=== PATIENT | female | born 1950 | race Caucasian/White ===

== ENCOUNTER → 2016-08-27 | Outpatient (CLI) | payer MEDICARE, OTHER ==
[~2016-08-27] MED LIST: ASPI-483 PO; CITA-49 PO; EXEN2VIA SQ; LOSA50TA17 PO; PANT40TA25 PO
== END ==
LOC: IMA 13:50
PROVIDERS: ATTEND Physician Assistant
DX: N64.4 Mastodynia (principal); N64.59 Other signs and symptoms in breast; N64.89 Other specified disorders of breast; M85.89 Other specified disorders of bone density and structure, multiple sites; M48.56XA Collapsed vertebra, not elsewhere classified, lumbar region, initial encounter for fracture; N95.8 Other specified menopausal and perimenopausal disorders; E28.39 Other primary ovarian failure; Z82.62 Family history of osteoporosis; Z87.828 Personal history of other (healed) physical injury and trauma
CPT/HCPCS: 77080; G0204; G0279

== ENCOUNTER 2016-12-31 11:02 | Inpatient (IN) ==
[2016-12-31] MEDS ORDERED: SALINE FLUSH 10ml SYRINGE IVF PRN (11:28)
[2016-12-31] MEDS ORDERED: FentaNYL 100 MCG/2 ML INJECTION IVP ONE ×2 (11:29→13:13)
--- NOTE | 2016-12-31 12:17 | Emergency Department Report ---
General Adult HPI - General Chief complaint: Extremity Injury, Lower Stated complaint: fall in shower Time Seen by Provider: 12/31/16 11:25 Source: patient Mode of arrival: ambulatory Limitations: no limitations - History of Present Illness HPI narrative: 66-year-old female presents to the emergency department with a chief complaint of a left lower extremity injury following a fall in the shower. Fall was mechanical. Patient slipped while coming out of the shower. She denies striking her head, neck pain, or loss of consciousness. Patient denies any other injuries. Patient notes pain in the left ankle. No radiation. Pain is severe. Pain is sharp. Pain improved with rest and positioning. No other complaints or associated symptoms. Patient was at home when the incident occurred. Symptoms have been persistent in nature since onset. - Related Data Home Medications Medication Instructions Recorded Confirmed Citalopram Hydrobromide 20 mg PO HS #0 04/24/10 12/31/16 [Citalopram HBr] Pantoprazole Sodium [Protonix] 40 mg PO DAILY #0 04/24/10 12/31/16 Acetaminophen [Acetaminophen Extra 1,000 mg PO Q6H PRN 12/31/16 12/31/16 Strength] Aspirin 325 mg PO HS 12/31/16 12/31/16 Canagliflozin [Invokana] 300 mg PO DAILY 12/31/16 12/31/16 Losartan Potassium 25 mg PO DAILY 12/31/16 12/31/16 Meloxicam [Meloxicam] 7.5 mg PO HS 12/31/16 12/31/16 Oxybutynin Chloride 5 mg PO BID 12/31/16 12/31/16 Pravastatin [Pravachol] 20 mg PO HS 12/31/16 12/31/16 Allergies Allergy/AdvReac Type Severity Reaction Status Date / Time cefazolin Allergy Mild Rash Verified 12/31/16 11:26 Review of Systems Constitutional: Denies: fever, chills Eyes: Denies: eye pain, vision change ENT: Denies: ear pain, throat pain Cardiovascular: Denies: chest pain, palpitations Respiratory: Denies: cough, dyspnea Gastrointestinal: Denies: abdominal pain, nausea, vomiting, diarrhea Genitourinary: Denies: urgency, dysuria Musculoskeletal: Reports: arthralgia. Denies: back pain Integumentary: Denies: erythema, rash Neurological: Denies: headache, numbness, paresthesias Psychiatric: Denies: anxiety, depression Endocrine: Denies: fatigue, heat or cold intolerance Hematological/Lymphatic: Denies: easy bleeding, easy bruising Allergic/Immunologic: Denies: facial swelling, urticaria PFSH Patient Stated Medical History Hypertension Yes Other Cardiology Yes: stress test 2 yrs ago and found no problems Sleep Apnea No Diabetes Mellitus Type 2 Yes: does not check bs at home, last A1c was 7.9 Gastroesophageal Reflux Yes Disease Osteoarthritis Yes Post Menopausal Yes Now No Surgical History: General: gallbladder, hernia, back, colonoscopy. Reproductive/: Family History: Reviewed and noncontributory. - Social History Smoking status: Never smoker Substance use type: does not use Alcohol intake frequency: does not drink Physical Exam - Limitations Limitations: no limitations - General General appearance: alert, in no apparent distress - Normal Exams: Head:: Normocephalic without trauma Eyes:: Pupils are PERRLA w/ EOMI, No scleral icterus, irritation, or foreign bodies noted ENMT:: No facial trauma, nasal exudates, pharyngeal erythema, or exudates are noted Dental: No fractured, loose, or missing teeth noted Neck:: Full range of motion, without adenopathy, JVD, bruits or thyromegaly Chest/Respirations:: Clear all cr, with good airflow, and symmetry bilaterally Cardiovascular:: Regular rate and rhythm, without murmur or gallop, Pulses 2+ all extremities, capillary refill, <2 seconds all extremities Abdomen:: Bowel sounds positive, soft, non-tender, non-distended, no hepatosplenomegaly, masses or bruits noted Lymphatic:: No lymphadenopathy, or lymphedema noted Musculoskeletal:: No tenderness, or deformity noted, good range of motion, all extremities (LLE - + edema with generalized tenderness around the ankle. No fibular head tenderness. Skin is intact. Pulses intact. Sensation intact. Capillary refill less than 2. No erythema. No other tenderness in the left lower extremity. All other extremities are unremarkable.) Integumentary:: No rashes, hives, or bruising noted, hair and nails, without abnormality Neurological:: Patient is alert, and oriented, cranial nerves, motor/sensory/ cerebellar, exams w/o gross deficits, to observation Psychiatric:: Patient exhibits, appropriate attention, emotion and affect Course Vital Signs Temperature 98.5 F 12/31/16 11:07 Pulse Rate 86 12/31/16 11:07 Respiratory Rate 18 12/31/16 11:07 Blood Pressure 149/73 H 12/31/16 11:07 Pulse Oximetry 98 12/31/16 11:07 Temperature 97.1 F 01/01/17 04:00 Pulse Rate 65 01/01/17 04:00 Respiratory Rate 14 01/01/17 04:00 Blood Pressure 109/61 01/01/17 04:00 Pulse Oximetry 95 01/01/17 04:00 Medical Decision Making - MDM Narrative Medical decision making narrative: Imaging was discussed in detail with the patient and questions are answered. Patient is given analgesic pain medication within the 1st hour of arrival to the emergency Department. Patient is discussed with Dr. Gore and admitted to his service for further evaluation and treatment. Splint was placed by Dr. Gore with good alignment in the emergency Department. Patient was distal neurovascular intact post-application of splint. Patient and family are in agreement with the current plan of management. Patient is admitted to the hospital in improved condition. No further orders. - Differential Diagnosis sprain, strain, fracture, dislocation - Lab Data Result diagrams: 01/01/17 04:32 01/01/17 04:32 Lab Results 12/31/16 12/31/16 12/31/16 Range/Units 14:51 17:41 21:34 WBC (4.5-11.0) T/MM3 RBC (4.00-5.20) M/MM3 Hgb (12-16) GM/DL Hct (36-46) % MCV (80-100) UM3 MCH (26-34) UUG MCHC (31-37) GM/DL RDW Std Deviation (36.9-50.2) FL Plt Count (130-400) T/MM3 MPV (9.4-12.4) UM3 Immature Gran % (Auto) (0.0-0.5) % Neut % (Auto) (33-66) % Lymph % (Auto) (23-45) % Sabine % (Auto) (0-9.0) % Eos % (Auto) (0-4) % Baso % (Auto) (0-2) % Neut # (1.8-7.7) T/MM3 Lymph # (1-4.8) T/MM3 Sabine # (0-0.8) T/MM3 Eos # (0-0.5) T/MM3 Baso # (0-0.2) T/MM3 Abs Immat Gran (auto) (0.00-0.03) T/MM3 Turbidity < 20 (0-20) Sodium 146 H (134-144) MEQ/L Potassium 4.0 (3.6-5) MEQ/L Chloride 111 H (98-107) MEQ/L Carbon Dioxide 23 (22-30) MEQ/L Anion Gap 12 (5-15) MEQ/L BUN 20.0 H (7-17) MG/DL Creatinine 0.5 L (0.7-1.2) MG/DL GFR Calculation 124 BUN/Creatinine Ratio 40 H (6-26) RATIO Glucose 158 H (65-110) MG/DL Glucometer 145 257 (65-110) mg/dL Calculated Osmolality 287 H (261-280) MOSM/KG Calcium 9.4 (8.4-10.2) MG/DL Icterus Index < 2 (0-7) Specimen Hemolysis < 15 (0-25) 01/01/17 01/01/17 Range/Units 04:32 04:32 WBC 10.7 (4.5-11.0) T/MM3 RBC 4.64 (4.00-5.20) M/MM3 Hgb 14.0 (12-16) GM/DL Hct 42.1 (36-46) % MCV 90.7 (80-100) UM3 MCH 30.2 (26-34) UUG MCHC 33.3 (31-37) GM/DL RDW Std Deviation 41.8 (36.9-50.2) FL Plt Count 240 (130-400) T/MM3 MPV 10.2 (9.4-12.4) UM3 Immature Gran % (Auto) 0.9 H (0.0-0.5) % Neut % (Auto) 79.7 H (33-66) % Lymph % (Auto) 10.7 L (23-45) % Sabine % (Auto) 8.3 (0-9.0) % Eos % (Auto) 0.2 (0-4) % Baso % (Auto) 0.2 (0-2) % Neut # 8.5 H (1.8-7.7) T/MM3 Lymph # 1.2 (1-4.8) T/MM3 Sabine # 0.9 H (0-0.8) T/MM3 Eos # 0.0 (0-0.5) T/MM3 Baso # 0.0 (0-0.2) T/MM3 Abs Immat Gran (auto) 0.10 H (0.00-0.03) T/MM3 Turbidity < 20 (0-20) Sodium 146 H (134-144) MEQ/L Potassium 4.8 D (3.6-5) MEQ/L Chloride 107 (98-107) MEQ/L Carbon Dioxide 27 (22-30) MEQ/L Anion Gap 12 (5-15) MEQ/L BUN 20.0 H (7-17) MG/DL Creatinine 0.6 L (0.7-1.2) MG/DL GFR Calculation 101 BUN/Creatinine Ratio 33 H (6-26) RATIO Glucose 155 H (65-110) MG/DL Glucometer (65-110) mg/dL Calculated Osmolality 287 H (261-280) MOSM/KG Calcium 9.7 (8.4-10.2) MG/DL Icterus Index < 2 (0-7) Specimen Hemolysis < 15 (0-25) - Radiology Data L Foot - Negative. L Ankle - closed distal tibia/fibula fracture. L TIB/FIB - closed distal tibia/fibula fracture. Disposition Clinical Impression: Ankle fracture Qualifiers: Encounter type: initial encounter Fracture type: closed Laterality: left Qualified Code(s): S82.892A - Other fracture of left lower leg, initial encounter for closed fracture Disposition: To [facility] Condition: Stable Time of Disposition: 13:00 - Seen By: physician
--- NOTE | 2016-12-31 12:46 | XRay Report ---
Indication: Pain / Injury PROCEDURE: XR foot LT min 3V: Encounter: Initial Comparison: Ankle radiographs from the same time. Findings: Oblique distal fibular and medial malleolar fractures, better seen on the ankle radiographs. No acute fracture or dislocation seen in the foot. Impression: Closed posttraumatic distal tibial and fibular fractures. .
--- NOTE | 2016-12-31 13:00 | XRay Report ---
Indication: Pain / Injury fall with ankle pain PROCEDURE: XR ankle LT min 3V: Encounter: Initial Comparison: None Findings: Oblique minimally displaced distal fibular fracture. Mildly displaced fracture of the medial malleolus. Widening of the medial clear space. The tibiofibular syndesmosis is not obviously widened. Lateral soft tissue swelling. No additional acute fracture or dislocation seen. Impression: Closed posttraumatic Arrington type B ankle fracture. .
--- NOTE | 2016-12-31 13:00 | XRay Report ---
Indication: Pain / Injury PROCEDURE: XR tib/fib LT 2V: Encounter: Initial Comparison: : Radiograph from the same time. Findings: Distal tibial and fibular fractures are better described and evaluated on the ankle radiographs. No acute fracture of the more proximal tibia or fibula seen. No dislocation. Impression: Closed posttraumatic distal tibial and fibular fractures. .
[2016-12-31] MEDS ORDERED: LR 1,000 ML IV SCH (14:45)
--- NOTE | 2016-12-31 14:48 | Orthopedic History & Physical ---
Orthopedic HPI - HPI Elements left ankle Pain: stabbing Onset: sudden Severity: moderate Duration: 1-6 hours How Often Does Pain Occur: constant Aggrevated by: walking Associated Symptoms: swelling Treatments Tried: immobilization Recommendation: ORIF - HPI Comments Fell out of her bathroom this morning and had immediate pain in the left ankle and was unable to bear weight. No previous problems with this ankle. [facility] Patient Stated Medical History Hypertension Yes Diabetes Mellitus Type 2 Yes Gastroesophageal Reflux Yes Disease Osteoarthritis Yes Post Menopausal Yes Now No Family History: noncontributory to chief complaint - Social History Smoking status: Never smoker Review of Systems - Constitutional Constitutional: Absent: chills - Cardiovascular Cardiovascular: Absent: chest pain, palpitations - Respiratory Respiratory: Absent: cough, dyspnea - Gastrointestinal Gastrointestinal: Absent: abdominal pain, nausea, vomiting - Genitourinary Genitourinary Female: Absent: dysuria - Musculoskeletal Musculoskeletal: Present: as per HPI - Integumentary/Breasts Integumentary: Absent: lesions, rash - Neurological Neurological: Absent: numbness, tingling Medications Home Medications Medication Instructions Recorded Confirmed Type Citalopram Hydrobromide 20 mg PO HS #0 04/24/10 12/31/16 History [Citalopram HBr] Pantoprazole Sodium [Protonix] 40 mg PO DAILY #0 04/24/10 12/31/16 History Acetaminophen [Acetaminophen Extra 1,000 mg PO Q6H PRN 12/31/16 12/31/16 History Strength] Aspirin 325 mg PO HS 12/31/16 12/31/16 History Canagliflozin [Invokana] 300 mg PO DAILY 12/31/16 12/31/16 History Losartan Potassium 25 mg PO DAILY 12/31/16 12/31/16 History Meloxicam [Meloxicam] 7.5 mg PO HS 12/31/16 12/31/16 History Oxybutynin Chloride 5 mg PO BID 12/31/16 12/31/16 History Pravastatin [Pravachol] 20 mg PO HS 12/31/16 12/31/16 History Allergies Allergy/AdvReac Type Severity Reaction Status Date / Time cefazolin Allergy Mild Rash Verified 12/31/16 11:26 Orthopedic Exam Vital signs: Temperature 98.5 F 12/31/16 11:07 Pulse Rate 86 12/31/16 11:07 Respiratory Rate 18 12/31/16 11:07 Blood Pressure 149/73 H 12/31/16 11:07 Pulse Oximetry 98 12/31/16 11:07 Oxygen Delivery Method Room Air - Constitutional General Appearance: Present: no acute distress, well developed, well nourished - Respiratory Exam Present: non-labored - Cardiovascular Exam Present: pedal pulses intact - Extremities Exam Comments: obvious deformity to left ankle, swelling present but good wrinkle sign less than 1mm superficial abrasion over anterior ankle good sensation and pulses - Integumentary Exam Present: pink, warm, dry - Neurological Exam Present: intact to light touch, no deficits - Psychiatric Exam Present: alert, normal affect Orthopedic Assessment and Plan (1) Bimalleolar fracture of left ankle Status: Acute Qualifiers: Encounter type: initial encounter Fracture type: closed Qualified Code(s) : S82.842A - Displaced bimalleolar fracture of left lower leg, initial encounter for closed fracture Assessment and Plan: Discussed the fracture with her and her . I recommended surgical fixation and I explained the risks and benefits of surgery and expected postoperative course. They agreed with this plan and we will proceed with surgery today. Hospital Course Summary Disclaimer: The visit summary below is not to be considered part of the above Progress Note.
[2016-12-31] MEDS ORDERED: CLINDAMYCIN PB 900 MG/50 ML BAG IV ONE (15:00)
[2016-12-31] MEDS ORDERED: LIDOCAINE 1% (10mg/ml) 30ml SDV INJ ONE (15:07)
[2016-12-31] MEDS ORDERED: BUPIVACAINE 0.25% (2.5mg/ml) PF 30ml INJECTION ONE (15:07)
--- NOTE | 2016-12-31 15:11 | Anesthesia Preoperative Report ---
Anesthesia Preoperative Record - Date and Time Date: 12/31/16 Preoperative Diagnosis: fall in shower fx left ankle Proposed Procedure: ORIF left ankle NPO Since Date: 12/30/16 NPO Since Time: 19:00 Allergies/Adverse Reactions: Allergies Allergy/AdvReac Type Severity Reaction Status Date / Time cefazolin Allergy Mild Rash Verified 12/31/16 11:26 - Vital Signs Vital Signs: Temperature 99.3 F 12/31/16 14:44 Pulse Rate 88 12/31/16 14:48 Respiratory Rate 21 12/31/16 14:44 Blood Pressure 126/56 12/31/16 14:44 Pulse Oximetry 94 12/31/16 14:44 Oxygen Delivery Method Room Air Height and Weight: Height 1.57 m Weight 96.2 kg - Medications Inpatient Medications: Current Medications Lactated Ringer's (Lactated Ringers) 1,000 mls @ 50 mls/hr IV .Q20H DENNIS Last Admin: 12/31/16 14:48 Dose: 50 mls/hr Clindamycin Phosphate (Cleocin Premix) 900 mg in 50 mls @ 100 mls/hr IV O ONE Stop: 12/31/16 15:29 Sodium Chloride (Iv Flush) 10 - 80 ml IVF PRN PRN PRN Reason: [place] Home Medications: Home Medications Medication Instructions Recorded Confirmed Type Citalopram Hydrobromide 20 mg PO HS #0 04/24/10 12/31/16 History [Citalopram HBr] Pantoprazole Sodium [Protonix] 40 mg PO DAILY #0 04/24/10 12/31/16 History Acetaminophen [Acetaminophen Extra 1,000 mg PO Q6H PRN 12/31/16 12/31/16 History Strength] Aspirin 325 mg PO HS 12/31/16 12/31/16 History Canagliflozin [Invokana] 300 mg PO DAILY 12/31/16 12/31/16 History Losartan Potassium 25 mg PO DAILY 12/31/16 12/31/16 History Meloxicam [Meloxicam] 7.5 mg PO HS 12/31/16 12/31/16 History Oxybutynin Chloride 5 mg PO BID 12/31/16 12/31/16 History Pravastatin [Pravachol] 20 mg PO HS 12/31/16 12/31/16 History - Medical History Cardiovascular: Reports: Hypertension, Other (stress test 2 yrs ago and found no problems ) Renal/Endocrine: Reports: Diabetes Mellitus Type 2 (does not check bs at home, last A1c was 7.9) - Surgical History HEENT Surgeries: Reports: Tonsillectomy GI Surgery/Treatments: Reports: Appendectomy, Cholecystectomy, Colonoscopy, Other (LOWER ABDOMINAL HERNIA) Musculoskeletal Surgery/Tx: Reports: Carpal Tunnel Release, Orthopedic Surgery ( BACK SURGERY X3) Reproductive Surgery/Treatment: Reports: Oophorectomy (removed rt ovary), Other ( x2. ectopic ) Anesthesia Reactions: None Hx Family Anesthesia Reaction: No - Social History Smoking Status: Never smoker - Pertinent Findings EKG Rhythm: Normal Sinus Rhythm - Physical Exam Respiratory Exam: Present: lungs clear, bilateral breath sounds equal Cardiovascular Exam: Present: regular rate and rhythm, no murmur - Airway Assessment Mallampati Score: III TMD: 2 Fingerbreadths Overall Assessment: may be difficult intubation - ASA ASA Score: 2 - Plan Anesthesia: General TIVA, General Inhalation Gases Peripheral Nerve Block: Popliteal-Left - Discussion Discussion: Discussed risks/options/alternatives of anesthesia and questions answered. Patient consents. Nursing pain assessment noted. Attestation Statement: Prior to the delivery of any anesthetic medication, I examined the patient, developed the plan, obtained the patient's consent and discussed the risk and benefits of the procedure with the patient/guardian.
[2016-12-31] MEDS ORDERED: MIDAZOLAM 2mg/2ml INJECTION IVP ONE (15:12)
[2016-12-31] MEDS ORDERED: ROPIVACAINE 0.5% (5mg/ml) 30ml INJ ONE (15:23)
[2016-12-31] MEDS: FentaNYL 250 MCG/5 ML INJECTION IVP ONE ×2 (15:30→17:47)
[2016-12-31] MEDS ORDERED: LIDOCAINE 2% (100mg/5mL) PF 5ml vl ONE (15:45)
[2016-12-31] MEDS ORDERED: PROPOFOL 500 MG/50 ML VIAL IV ONE (15:45)
[2016-12-31] MEDS ORDERED: MIDAZOLAM 2mg/2ml INJECTION ONE (15:45)
[2016-12-31] MEDS ORDERED: FentaNYL 100 MCG/2 ML INJECTION ONE (15:45)
[2016-12-31] MEDS ORDERED: KETAMINE 500 MG/10 ML INJECTION ONE (15:45)
[2016-12-31] MEDS ORDERED: DEXAMETHASONE 4 MG/ML INJECTION ONE (15:59)
[2016-12-31] MEDS ORDERED: ONDANSETRON 4 MG/2 ML INJECTION ONE (15:59)
--- NOTE | 2016-12-31 16:11 | Anesthesia Procedure Note ---
Peripheral Nerve Blockade - Procedure Physician: Sergio Gore MD Date: 12/31/16 Surgical Procedure: left ankle fx Discussion: Discussed risks/options/alternatives of anesthesia and questions answered. Patient consents. Nursing pain assessment noted. Block Start: 15:32 Block Stop: 15:39 Blocked Employed: Popliteal Indication: Post-Operative Pain Approach: Left Side Confirmed Position: Supine Patient: Consent, Risks/Benefits Discussed, Informed, Post Block Act. Discussed IV Sedation: Yes Midazolam (mg): 2 Fentanyl (mg): 100 Initial Vital Signs: Temperature 98.5 F 12/31/16 11:07 Temperature Source Oral 12/31/16 11:07 Sepsis Recent Fever Within 48 Hours No 12/31/16 11:07 Sepsis Suspicion of Infection No 12/31/16 11:07 Sepsis New/Unexplained Change in Mental Status No 12/31/16 11:07 Sepsis Score/Level No Definite Risk 12/31/16 11:07 Sepsis Action Taken by Nursing No Action 12/31/16 11:07 Pulse Rate 86 12/31/16 11:07 Pulse Rhythm 12/31/16 11:07 Pulse Strength Normal 12/31/16 11:07 Respiratory Rate 18 12/31/16 11:07 Respiratory Effort 12/31/16 11:07 Respiratory Depth Normal 12/31/16 11:07 Respiratory Pattern 12/31/16 11:07 Blood Pressure 149/73 H 12/31/16 11:07 Blood Pressure Mean 98 12/31/16 11:07 Blood Pressure Position Sitting 12/31/16 11:07 Pulse Oximetry 98 12/31/16 11:07 Oxygen Delivery Method 12/31/16 11:07 Post Vital Signs: Temperature 99.3 F 12/31/16 14:44 Pulse Rate 92 12/31/16 15:42 Respiratory Rate 19 12/31/16 15:42 Blood Pressure 126/76 12/31/16 15:42 Pulse Oximetry 94 12/31/16 15:42 Oxygen Delivery Method Room Air Initial Pain Pain Score: 5 Post Block Pain Score: 3 Prep: Chlorhexadine/ETOH Ultrasound Used?: Yes - Nerve Simulator Paresthesia/Pain: None - Injectate Injection: Injection made incrementally with constant monitoring and aspiration every ml
[2016-12-31] MEDS ORDERED: HYDROMORPHONE 2 MG/ML INJECTION IVP PRN (16:12)
[2016-12-31] MEDS ORDERED: METOCLOPRAMIDE 10mg/2ml INJECTION IVP PRN (16:12)
--- NOTE | 2016-12-31 16:59 | Anesthesia Postoperative Note ---
- Date and Time Date: 12/31/16 Time: 16:50 - Status Patient Participated in Evaluation: Patient Participated in Person Vital Signs: Temperature 99.3 F 12/31/16 14:44 Pulse Rate 92 12/31/16 15:42 Respiratory Rate 19 12/31/16 15:42 Blood Pressure 126/76 12/31/16 15:42 Pulse Oximetry 94 12/31/16 15:42 Oxygen Delivery Method Room Air Respiratory Function: Airway Patent Cardiovascular Function: Regular Pulse EKG Rhythm: Normal Sinus Rhythm Mental Status: Alert and Oriented Pain Intensity: 0 Hydration: IV Infusing Complications During Recover: None Apparent - Follow-Up Instructions Instructions: Per Surgeon
--- NOTE | 2016-12-31 17:01 | Remote Fluorsocopy Report ---
Indication: ORIF LEFT ANKLE PROCEDURE: RF ankle LT 3 view: Encounter: Initial Comparison: Ankle radiographs from earlier today Findings: Four fluoroscopic spot images are submitted for interpretation. Images show open reduction and internal fixation of the Arrington type B ankle fracture with placement of two partially threaded cannulated lag screws across the medial malleolus and a lateral side plate and screws across the distal fibular fracture with improved alignment of the fracture fragments. Impression: Intraoperative fluoroscopy as above. Fluoroscopy time is 47 seconds. Fluoroscopy dose is 187 mRad. .
[2016-12-31] MEDS ORDERED: ONDANSETRON 4 MG/2 ML INJECTION IVP PRN (17:25)
[2016-12-31] MEDS ORDERED: NOZIN NASAL SWAB NAS ONE (17:25)
[2016-12-31] MEDS ORDERED: SENNA + DOCUSATE TABLET PO PRN (17:25)
[2016-12-31] MEDS: NS 1,000 ML IV SCH (17:52)
[2016-12-31] MEDS: NOZIN NASAL SWAB NAS SCH (17:52)
[2016-12-31] MEDS: INSULIN REGULAR, HUMAN 100 UNIT/ML INJECTION SQ PRN (21:56)
[2016-12-31] MEDS: CITALOPRAM 20 MG TABLET PO SCH (21:58)
[2016-12-31] MEDS: MELOXICAM 7.5 MG TABLET PO SCH (21:59)
[2016-12-31] MEDS: HYDROCODONE/APAP 7.5 MG/325 MG TABLET PO PRN (21:59)
[2016-12-31] MEDS: ASPIRIN *EC* 325 MG TABLET PO SCH (21:59)
[2016-12-31] MEDS: PRAVASTATIN 20 MG TABLET PO SCH (22:00)
[2016-12-31] MEDS: CLINDAMYCIN PB 900 MG/50 ML BAG IV SCH (22:00)
[2017-01-01] MEDS: CLINDAMYCIN PB 900 MG/50 ML BAG IV SCH ×2 (03:03→10:49)
[2017-01-01] MEDS: NOZIN NASAL SWAB NAS SCH ×3 (03:03→17:09)
[2017-01-01] MEDS: INSULIN REGULAR, HUMAN 100 UNIT/ML INJECTION SQ PRN ×3 (06:32→22:46)
[2017-01-01] MEDS: PANTOPRAZOLE 40 MG TABLET PO SCH (06:32)
[2017-01-01] MEDS: NS 1,000 ML IV SCH (08:31)
--- NOTE | 2017-01-01 08:54 | Operative Note ---
DATE OF OPERATION 12/31/2016 PREOPERATIVE DIAGNOSIS Left ankle bimalleolar ankle fracture. POSTOPERATIVE DIAGNOSIS Left ankle bimalleolar ankle fracture. PROCEDURE Open reduction internal fixation of left bimalleolar ankle fracture. SURGEON Leticia Gore MD SPORTS SPECIALIST Brad Wren PA-C COMPLICATIONS None ANESTHESIA General DESCRIPTION OF PROCEDURE Mrs. Banuelos and her left ankle are identified in the emergency room. She was brought back to the operating suite and placed supine on the operating table. A popliteal block was placed in the preoperative holding area. Her left lower extremity was prepped and draped in my normal sterile fashion. Time-out was performed. The leg was exsanguinated and the tourniquet inflated to 250 mmHg. A lateral approach to the distal fibula was performed. This was a Arrington B type fracture which was a short oblique with a longitudinal splint in the distal fragment which was essentially nondisplaced. This was not amenable to a lag screw. The fracture was easily reduced with simple inversion of the ankle to regain length and I placed a lateral locking plate over the fracture site which again helped reduce the fracture after I placed one nonlocking screw in the proximal fragment. I proceeded to place another nonlocking screw in the distal fragment and one more nonlocking screw in the most proximal hole. The remaining holes were filled with locking screws. The ankle was taken through a range of motion including external rotation. There was no widening of the tib/fib clear space. This side was then irrigated and closed by my pier master assistant as I moved to the medial side. A 3 cm longitudinal incision was made over the medial malleolus and blunt dissection carried down to the fracture site. There was no interposed periosteum and the fracture was rather well reduced after fixing the lateral side, so I placed two cannulated partially threaded nonlocking screws in a retrograde fashion past the fracture site in the medial malleolus over K- wires. Both achieved a good bite and again the fracture was well reduced on multiple images. The K-wires were removed. Medial wound was thoroughly irrigated and also closed in layers. Nylon was used in the skin. The final fluoroscopic images were taken. The skin was cleaned of blood and a posterior slab and stirrup-type splint was placed. The drapes were then removed, the tourniquet was let down, she was allowed to awake from general anesthesia and taken to the recovery room under the care of Anesthesia. She tolerated the procedure well and there were no complications. MICHAEL
--- NOTE | 2017-01-01 09:08 | Orthopedic Progress Note ---
Date: Subjective/Severity of Illness: Kristy looks good this AM. She had ORIF of the Left ankle 12/31 and will need to be non-wt bearing for 6-8 weeks. Pain is well controlled. Denies CV or Resp concerns. She has not been up with PT yet. Orthopedic Objective PO Vital signs: Temperature 98.0 F 01/01/17 07:24 Pulse Rate 66 01/01/17 07:24 Respiratory Rate 16 01/01/17 07:24 Blood Pressure 127/69 01/01/17 07:24 Pulse Oximetry 95 01/01/17 07:24 Oxygen Delivery Method Room Air Height and Weight: Height 5 ft 2 in Weight 220 lb 14.451 oz - Constitutional General Appearance: Present: alert, no acute distress, well developed, obese - Respiratory Exam Present: non-labored - Cardiovascular Exam Capillary Refill: < 2-3 Seconds - Extremities Exam Comments: Minimal bloody area around the great toe nail on the non-operative leg. No erythema or open wounds. No warmth. - Surgical Site Incision: dressing intact (Large plaster splint in good condition. ) - Integumentary Exam Present: pink, warm, dry - Neurological Exam Present: intact to light touch, no deficits - Psychiatric Exam Present: alert, normal affect - Labs Result Diagrams: 01/01/17 04:32 01/01/17 04:32 Abnormal lab results 12/31/16 01/01/17 01/01/17 Range/Units 14:51 04:32 04:32 Immature Gran % (Auto) 0.9 H (0.0-0.5) % Neut % (Auto) 79.7 H (33-66) % Lymph % (Auto) 10.7 L (23-45) % Neut # 8.5 H (1.8-7.7) T/MM3 [place] # 0.9 H (0-0.8) T/MM3 Abs Immat Gran (auto) 0.10 H (0.00-0.03) T/MM3 Sodium 146 H 146 H (134-144) MEQ/L Chloride 111 H (98-107) MEQ/L BUN 20.0 H 20.0 H (7-17) MG/DL Creatinine 0.5 L 0.6 L (0.7-1.2) MG/DL BUN/Creatinine Ratio 40 H 33 H (6-26) RATIO Glucose 158 H 155 H (65-110) MG/DL Calculated Osmolality 287 H 287 H (261-280) MOSM/KG H & H 01/01/17 Range/Units 04:32 Hgb 14.0 (12-16) GM/DL Hct 42.1 (36-46) % Orthopedic Assessment and Plan (1) Bimalleolar fracture of left ankle Status: Acute Qualifiers: Encounter type: initial encounter Fracture type: closed Qualified Code(s) : S82.842A - Displaced bimalleolar fracture of left lower leg, initial encounter for closed fracture Assessment and Plan: Pt underwent ORIF 12/31/16. Non-wt bearing L ankle for 6-8 weeks. PT / OT to work with her on mobility / ADL's etc.. CM for discharge needs. ? IRU placement vs NH for a while. Aspirin for DVT coverage. SCD on non operative leg. Labs are stable this AM. Monitor BGMs as she is diabetic. Hospital Course Summary Disclaimer: The visit summary below is not to be considered part of the above Progress Note.
[2017-01-01] MEDS ORDERED: NS FLUSH BAG 500ml IV PRN (10:31)
[2017-01-01] MEDS: CANAGLIFLOZIN 100mg TABLET PO SCH (10:44)
[2017-01-01] MEDS: ASPIRIN *EC* 325 MG TABLET PO SCH ×2 (10:45→20:54)
[2017-01-01] MEDS: LOSARTAN 50 MG TABLET PO SCH (10:45)
[2017-01-01] MEDS: HYDROCODONE/APAP 7.5 MG/325 MG TABLET PO PRN ×3 (13:22→23:08)
[2017-01-01] MEDS ORDERED: FALL RISK - PHARMACY CONSULT MC PRN (14:49)
[2017-01-01] MEDS: MELOXICAM 7.5 MG TABLET PO SCH (20:54)
[2017-01-01] MEDS: PRAVASTATIN 20 MG TABLET PO SCH (20:54)
[2017-01-01] MEDS: SALINE FLUSH 10ml SYRINGE IVF PRN (20:54)
[2017-01-01] MEDS: CITALOPRAM 20 MG TABLET PO SCH (20:54)
[2017-01-02] MEDS ORDERED: LORazepam 1 MG TABLET PO PRN (00:06)
[2017-01-02] MEDS: MORPHINE SULFATE 4 MG SYRINGE IVP PRN ×3 (00:15→03:02)
[2017-01-02] MEDS: NOZIN NASAL SWAB NAS SCH ×3 (02:08→18:50)
[2017-01-02] MEDS: PANTOPRAZOLE 40 MG TABLET PO SCH (05:31)
[2017-01-02] MEDS: HYDROCODONE/APAP 7.5 MG/325 MG TABLET PO PRN ×3 (05:32→20:51)
[2017-01-02] MEDS: INSULIN REGULAR, HUMAN 100 UNIT/ML INJECTION SQ PRN ×4 (06:14→20:52)
--- NOTE | 2017-01-02 07:56 | Orthopedic Progress Note ---
Date: Subjective/Severity of Illness: Kristy struggled with pain and cramping in her left calf last night. Pain was addressed with a couple of doses of Morphine. Mobility has been slow and difficult. I disscussed with PT yesterday afternoon, and they communicated that she is a 3 person assist to get up and when up she does not keep her weight off of the ankle as ordered. Discharge was held because of pain and mobility. Discharge plan at this point is home with home health. Orthopedic Objective PO Vital signs: Temperature 97.5 F 01/02/17 07:47 Pulse Rate 86 01/02/17 07:47 Respiratory Rate 16 01/02/17 07:47 Blood Pressure 130/80 01/02/17 07:47 Pulse Oximetry 93 01/02/17 07:47 Oxygen Delivery Method Room Air Height and Weight: Height 5 ft 2 in Weight 220 lb 14.451 oz - Constitutional General Appearance: Present: alert, no acute distress, well developed, obese - Respiratory Exam Present: non-labored - Cardiovascular Exam Present: pedal pulses intact - Surgical Site Incision: dressing intact (Large plaster splint in good condition. ) - Integumentary Exam Present: pink, warm, dry - Neurological Exam Present: intact to light touch, no deficits - Psychiatric Exam Present: alert, normal affect - Labs Result Diagrams: 01/02/17 04:14 01/02/17 04:14 Abnormal lab results 01/02/17 01/02/17 Range/Units 04:14 04:14 Immature Gran % (Auto) 1.6 H (0.0-0.5) % Lymph % (Auto) 18.5 L (23-45) % [place] % (Auto) 14.1 H (0-9.0) % [place] # 1.4 H (0-0.8) T/MM3 Abs Immat Gran (auto) 0.16 H (0.00-0.03) T/MM3 Sodium 146 H (134-144) MEQ/L BUN 18.0 H (7-17) MG/DL Glucose 146 H (65-110) MG/DL Calculated Osmolality 286 H (261-280) MOSM/KG H & H 01/01/17 01/02/17 Range/Units 04:32 04:14 Hgb 14.0 13.4 (12-16) GM/DL Hct 42.1 41.7 (36-46) % Orthopedic Assessment and Plan (1) Bimalleolar fracture of left ankle Status: Acute Qualifiers: Encounter type: initial encounter Fracture type: closed Qualified Code(s) : S82.842A - Displaced bimalleolar fracture of left lower leg, initial encounter for closed fracture Assessment and Plan: s/p ORIF bimalleolar ankle fracture. Her pain is presently improved, but I discussed adjusting narcotic doses if needed or trying a muscle relaxer ASA for DVT prevention need assistance with discharge planning, her mobility at this point is questionable for safety to discharge to home. Will work with PT today. patient needs to elevate and ice consistently I will get a new left ankle X-ray to assess fracture and increased pain. Hospital Course Summary Disclaimer: The visit summary below is not to be considered part of the above Progress Note.
--- NOTE | 2017-01-02 08:26 | XRay Report ---
Indication: assess increased pain PROCEDURE: XR ankle LT min 3V: Encounter: Initial Comparison: December 31, 2016 Findings: Internally fixed medial and lateral malleolar fractures are again noted and grossly stable alignment. Overlying material obscures fine bony detail. No evidence of hardware loosening or failure. Impression: Stable alignment of the internally fixed distal tibial and fibular fractures. .
[2017-01-02] MEDS: CANAGLIFLOZIN 100mg TABLET PO SCH (09:07)
[2017-01-02] MEDS: ASPIRIN *EC* 325 MG TABLET PO SCH (09:07)
[2017-01-02] MEDS: LOSARTAN 50 MG TABLET PO SCH (09:07)
--- NOTE | 2017-01-02 09:38 | Orthopedic Progress Note ---
Date: Subjective/Severity of Illness: Kristy had more pain overnight and received IV Morphine and PO Ativan. The meds helped her pain considerably. This AM her pain is improved. She is working with PT / OT but is not independent or safe for discharge. Pt denies CP, cough or SOA. She is passing gas but has not had a BM yet. No other concerns reported at this time. Orthopedic Objective PO Vital signs: Temperature 97.5 F 01/02/17 07:47 Pulse Rate 86 01/02/17 07:47 Respiratory Rate 16 01/02/17 07:47 Blood Pressure 130/80 01/02/17 07:47 Pulse Oximetry 93 01/02/17 07:47 Oxygen Delivery Method Room Air Height and Weight: Height 5 ft 2 in Weight 220 lb 14.451 oz - Constitutional General Appearance: Present: alert, no acute distress, obese - Respiratory Exam Present: non-labored - Cardiovascular Exam Present: pedal pulses intact - Surgical Site Incision: dressing intact (Large plaster splint in good condition. ) - Integumentary Exam Present: pink, warm, dry - Neurological Exam Present: intact to light touch, no deficits - Psychiatric Exam Present: alert, normal affect - Labs Result Diagrams: 01/02/17 04:14 01/02/17 04:14 Abnormal lab results 01/02/17 01/02/17 Range/Units 04:14 04:14 Immature Gran % (Auto) 1.6 H (0.0-0.5) % Lymph % (Auto) 18.5 L (23-45) % [place] % (Auto) 14.1 H (0-9.0) % [place] # 1.4 H (0-0.8) T/MM3 Abs Immat Gran (auto) 0.16 H (0.00-0.03) T/MM3 Sodium 146 H (134-144) MEQ/L BUN 18.0 H (7-17) MG/DL Glucose 146 H (65-110) MG/DL Calculated Osmolality 286 H (261-280) MOSM/KG H & H 01/01/17 01/02/17 Range/Units 04:32 04:14 Hgb 14.0 13.4 (12-16) GM/DL Hct 42.1 41.7 (36-46) % Orthopedic Assessment and Plan (1) Bimalleolar fracture of left ankle Status: Acute Qualifiers: Encounter type: initial encounter Fracture type: closed Qualified Code(s) : S82.842A - Displaced bimalleolar fracture of left lower leg, initial encounter for closed fracture Assessment and Plan: Kristy is doing okay. Pain is improved with Ativan and IV Morphine. Will try to limit using Morphine unless the pain is not controlled on oral meds. Cont PT/OT Pt is not safe for discharge at this time. Will make her an inpatient based on pain and mobility issues. CM is working on placement but it may be Friday for Friday before criteria is met for discharge to SNU. Cont SCD to non-operative leg. Will switch her to Lovenox for added DVT prevention. Meds for bowel motivation ordered. Monitor. Hospital Course Summary Disclaimer: The visit summary below is not to be considered part of the above Progress Note.
[2017-01-02] MEDS: ENOXAPARIN 40 MG/0.4 ML INJECTION SQ SCH (10:27)
[2017-01-02] MEDS: SALINE FLUSH 10ml SYRINGE IVF PRN (14:03)
[2017-01-02] MEDS: PRAVASTATIN 20 MG TABLET PO SCH (20:52)
[2017-01-02] MEDS: MELOXICAM 7.5 MG TABLET PO SCH (20:52)
[2017-01-02] MEDS: CITALOPRAM 20 MG TABLET PO SCH (20:53)
[2017-01-03] MEDS: NOZIN NASAL SWAB NAS SCH ×3 (00:42→19:16)
[2017-01-03] MEDS: SALINE FLUSH 10ml SYRINGE IVF PRN ×2 (00:43→20:48)
[2017-01-03] MEDS: MORPHINE SULFATE 4 MG SYRINGE IVP PRN (02:30)
[2017-01-03] MEDS: PANTOPRAZOLE 40 MG TABLET PO SCH (05:58)
[2017-01-03] MEDS: HYDROCODONE/APAP 7.5 MG/325 MG TABLET PO PRN ×3 (08:05→20:46)
[2017-01-03] MEDS: LOSARTAN 50 MG TABLET PO SCH (08:36)
[2017-01-03] MEDS: CANAGLIFLOZIN 100mg TABLET PO SCH (08:37)
[2017-01-03] MEDS: ENOXAPARIN 40 MG/0.4 ML INJECTION SQ SCH (08:38)
[2017-01-03] MEDS ORDERED: FALL RISK - PHARMACY CONSULT MC PRN (09:07)
[2017-01-03] MEDS: INSULIN REGULAR, HUMAN 100 UNIT/ML INJECTION SQ PRN ×3 (10:30→20:12)
--- NOTE | 2017-01-03 12:45 | Orthopedic Progress Note ---
Date: Subjective/Severity of Illness: Kristy had more pain overnight and received IV Morphine. This AM her pain is improved. She is working with PT / OT but is not independent or safe for discharge. Pt denies CP, cough or SOA. She is passing gas but has not had a BM yet. No other concerns reported at this time. Orthopedic Objective PO Vital signs: Temperature 97.2 F 01/03/17 12:00 Pulse Rate 80 01/03/17 12:00 Respiratory Rate 16 01/03/17 12:00 Blood Pressure 120/67 01/03/17 12:00 Pulse Oximetry 95 01/03/17 12:00 Oxygen Delivery Method Room Air Height and Weight: Weight 219 lb 9.286 oz - Constitutional General Appearance: Present: alert, no acute distress, obese - Respiratory Exam Present: non-labored - Cardiovascular Exam Present: pedal pulses intact - Surgical Site Incision: dressing intact (Large plaster splint in good condition. ) - Integumentary Exam Present: pink, warm, dry - Neurological Exam Present: intact to light touch, no deficits - Psychiatric Exam Present: alert, normal affect - Labs Result Diagrams: 01/02/17 04:14 01/02/17 04:14 Orthopedic Assessment and Plan (1) Bimalleolar fracture of left ankle Status: Acute Qualifiers: Encounter type: initial encounter Fracture type: closed Qualified Code(s) : S82.842A - Displaced bimalleolar fracture of left lower leg, initial encounter for closed fracture Assessment and Plan: Cont Lovenox for DVT coverage. Mobilize wtih PT / OT. Expect discharge on Friday or Friday. Meds for Bowels ordered. Hospital Course Summary Disclaimer: The visit summary below is not to be considered part of the above Progress Note.
[2017-01-03] MEDS: MELOXICAM 7.5 MG TABLET PO SCH (20:45)
[2017-01-03] MEDS: CITALOPRAM 20 MG TABLET PO SCH (20:45)
[2017-01-03] MEDS: PRAVASTATIN 20 MG TABLET PO SCH (20:46)
[2017-01-04] MEDS: HYDROCODONE/APAP 7.5 MG/325 MG TABLET PO PRN ×4 (02:56→23:29)
[2017-01-04] MEDS: NOZIN NASAL SWAB NAS SCH ×3 (02:57→17:23)
[2017-01-04] MEDS: SALINE FLUSH 10ml SYRINGE IVF PRN ×2 (06:18→21:14)
[2017-01-04] MEDS: PANTOPRAZOLE 40 MG TABLET PO SCH (06:18)
--- NOTE | 2017-01-04 09:18 | Orthopedic Progress Note ---
Date: Subjective/Severity of Illness: Kristy is doing well. Pain levels get a little better every day. No CP or resp complaints. Had a small BM and is still passing flatus. NO other concerns. Planning transfer to SNU tomorrow. Orthopedic Objective PO Vital signs: Temperature 98.3 F 01/04/17 08:39 Pulse Rate 76 01/04/17 08:39 Respiratory Rate 16 01/04/17 08:39 Blood Pressure 138/78 01/04/17 08:39 Pulse Oximetry 93 01/04/17 08:39 Oxygen Delivery Method Room Air Height and Weight: Weight 220 lb 7.396 oz - Constitutional General Appearance: Present: alert, no acute distress, obese - Respiratory Exam Present: non-labored - Cardiovascular Exam Present: pedal pulses intact Capillary Refill: < 2-3 Seconds - Surgical Site Incision: dressing intact (Large plaster splint in good condition. ) - Integumentary Exam Present: pink, warm, dry - Neurological Exam Present: intact to light touch, no deficits - Psychiatric Exam Present: alert, normal affect - Labs Result Diagrams: 01/02/17 04:14 01/02/17 04:14 Orthopedic Assessment and Plan (1) Bimalleolar fracture of left ankle Status: Acute Qualifiers: Encounter type: initial encounter Fracture type: closed Qualified Code(s) : S82.842A - Displaced bimalleolar fracture of left lower leg, initial encounter for closed fracture Assessment and Plan: Remain Non-wt bearing on operative leg. Elevate to prevent swelling. Keep the splint dry. Lovenox for DVT coverage. I.S. for pulmonary coverage. Meds for constipation ordered. Hospital Course Summary Disclaimer: The visit summary below is not to be considered part of the above Progress Note.
--- NOTE | 2017-01-04 09:35 | Discharge Summary ---
Orthopedic Discharge Info Date of admission: 01/02/17 11:42 Anticipated date of discharge: 01/05/17 Primary care physician: Chris Jensen DO Attending Physician: Sergio Gore MD - Discharge Diagnosis (1) Bimalleolar fracture of left ankle Qualifiers: Encounter type: initial encounter Fracture type: closed Qualified Code(s) : S82.842A - Displaced bimalleolar fracture of left lower leg, initial encounter for closed fracture Status: Acute - Procedures Procedures: ORIF left ankle 12/31/[address] Bao CANALES. - Laboratory Result Diagrams: 01/02/17 04:14 01/02/17 04:14 Orthopedic Discharge HPI - HPI Elements left ankle Injury: Yes (Fell in her bathroom at home on 12/31/16) Pain: stabbing Onset: sudden Severity: moderate Duration: 1-6 hours How Often Does Pain Occur: constant Aggrevated by: walking Associated Symptoms: swelling Treatments Tried: immobilization Recommendation: ORIF - HPI Comments Fell out of her bathroom this morning and had immediate pain in the left ankle and was unable to bear weight. No previous problems with this ankle. Orthopedic Hospital Course Hospital course: 01/04/17 09:38 After appropriate preoperative clearance and signing of operative consent, the patient was given IV antibiotics, according to orthopedic protocol. The patient was taken to the operating room and underwent ORIF of the left ankle on 12/31/[address] Gore. Following surgery, antibiotics were discontinued less than 24 hours according to protocol. Aspirin was initiated and SCDs added for DVT prevention. Due to her slow return to mobilization, she was switched to SQ Lovenox for added DVT protection. She was also switched to an inpatient status due to poor pain control and mobility difficulties. The splint is in good condition. Pain control was obtained via multimodal approach and eventually controlled on oral meds. Bowel motivation addressed with scheduled and PRN medications. Early mobilization was initiated through PT services but she is non-wt bearing on the operative leg. Her progress with PT was very slow and she was not safely able to keep the non-wt bearing status.. Discharge arrangements made by a collaborative effort between the patient and Case Management. Plan is for pt to go to SNU. Follow-up is scheduled in 2-3 weeks. Discharge instructions given by orthopedic providers and nursing staff at discharge. Discharge condition was good. Discharge Plan - Med Rec/Dispo Referrals/Follow Up: Chris Jensen DO [Family Provider] - Brad Wren PA [Physician Ham Rolling Machine Operator] - 01/15/17 8:30 am Billie Instructions: ORIF of an Ankle Fracture (DC), [facility] Postop Instructions Additional Instructions: Keep the splint on the left leg. Elevate the leg to control swelling. Pt must remain NON-WEIGHT BEARING ON THE LEFT LEFT LEG. Keep the leg dry. Prescriptions: New Enoxaparin Sodium [Lovenox] 40 mg SQ DAILY #14 syringe Hydrocodone/APAP 7.5/325 [[place] 7.5/325] 1 - 2 tab PO Q6H PRN #60 tablet PRN Reason: Pain LORazepam [Ativan] 1 mg PO Q8H PRN #15 tablet PRN Reason: Anxiety/Pain Milk of Magnesia [Mom] 30 ml PO DAILY PRN udc PRN Reason: Constipation Senna + Docusate [Senna Plus Tablet] 1 tab PO BID PRN tablet PRN Reason: Constipation Continue Pantoprazole Sodium [Protonix] 40 mg PO DAILY #0 Pravastatin [Pravachol] 20 mg PO HS Oxybutynin Chloride 5 mg PO BID Meloxicam 7.5 mg PO HS Losartan Potassium 25 mg PO DAILY Acetaminophen [Acetaminophen Extra Strength] 1,000 mg PO Q6H PRN PRN Reason: Pain Citalopram Hydrobromide [Citalopram HBr] 20 mg PO HS #0 Canagliflozin [Invokana] 300 mg PO DAILY Discontinued Aspirin 325 mg PO HS - Disposition 03 To SNU Not [facility] (SNF)
--- NOTE | 2017-01-04 09:55 | Extended Care Facility Orders ---
Admission Orders [facility] Allergies/Adverse Reactions: Allergies cefazolin Allergy (Mild, Verified 12/31/16 11:26) Rash Admitting Diagnosis: fx left ankle Admitting Physician: Sergio Gore MD Attending Physician: Sergio Gore MD Anticiapted Length of Stay: 30 days or less Rehab Potential: fair Rehab Prognosis: good Diet: 1800 GERARDO ADA Wound/Incision Care: N/A. Has wounds medial and laterally under the splint. Call if pt has uncontrolled pain, increased swelling, redness or signs of drainage around the splint. Do not remove the splint. May use Facility Protocol or Standing Orders: Yes May have flu vaccine: Yes Evaluations/Treatment: PT (NON-wt bearing left ankle.), OT [facility] Certification: I certify that SNF services are required to be given on an Inpatient basis because of the patients need for detention care on a continuing basis for the condition(s) for which he/she received inpatient hospital services prior to his/her transfer to the SNF. SNF inpatient care is necessary for the following reasons Indication for [facility]: Postop Assessment Care - Additional Information In Event of Arrest: Start CPR,call 911,send patient to the ER Resident is Aware of Diagnosis: Yes Referrals: Brad Wren PA [Physician Patrol Agent] - 01/15/17 8:30 am Chris Jensen DO [Family Provider] - Additional Orders: Pt MUST remain Non-Wt bearing on her left leg at all times. Elevate the leg to control swelling. Do not remove the splint and keep it dry. Check BGMs QID and PRN. Lovenox for DVT coverage. See orders. Encourage I.S. q 4hrs while awake.
[2017-01-04] MEDS: LOSARTAN 50 MG TABLET PO SCH (10:15)
[2017-01-04] MEDS: ENOXAPARIN 40 MG/0.4 ML INJECTION SQ SCH (10:16)
[2017-01-04] MEDS: CANAGLIFLOZIN 100mg TABLET PO SCH (10:16)
[2017-01-04] MEDS: INSULIN REGULAR, HUMAN 100 UNIT/ML INJECTION SQ PRN ×2 (12:34→21:13)
[2017-01-04] MEDS: PRAVASTATIN 20 MG TABLET PO SCH (21:12)
[2017-01-04] MEDS: MELOXICAM 7.5 MG TABLET PO SCH (21:12)
[2017-01-04] MEDS: CITALOPRAM 20 MG TABLET PO SCH (21:13)
[2017-01-05] MEDS: NOZIN NASAL SWAB NAS SCH ×2 (01:15→09:37)
[2017-01-05 04:03] VITALS: RESP 18
[2017-01-05] MEDS: SALINE FLUSH 10ml SYRINGE IVF PRN (06:35)
[2017-01-05] MEDS: PANTOPRAZOLE 40 MG TABLET PO SCH (06:35)
[2017-01-05] MEDS: HYDROCODONE/APAP 7.5 MG/325 MG TABLET PO PRN ×2 (06:37→12:23)
[2017-01-05 07:24] VITALS: TEMP 98.6
[2017-01-05] MEDS: ENOXAPARIN 40 MG/0.4 ML INJECTION SQ SCH (09:36)
[2017-01-05] MEDS: LOSARTAN 50 MG TABLET PO SCH (09:37)
[2017-01-05] MEDS: CANAGLIFLOZIN 100mg TABLET PO SCH (09:37)
[2017-01-05 11:52] VITALS: BP 130/80; PULSE 87; O2SAT 93
[2017-01-05] MEDS: INSULIN REGULAR, HUMAN 100 UNIT/ML INJECTION SQ PRN (12:23)
== END 2017-01-05 13:10 | DRG 494 ==
LOC: ED 11:02 → SRG 14:41 → SUR 14:41 → SRG 17:27
PROVIDERS: ADMIT Orthopaedic Surgery; ATTEND Orthopaedic Surgery

== ENCOUNTER 2017-12-04 13:37 | Inpatient (IN) ==
[2017-12-04] MEDS ORDERED: LORazepam 0.5 MG TABLET PO PRN (15:40)
[2017-12-04] MEDS ORDERED: TEMAZEPAM 15 MG CAPSULE PO PRN (15:40)
[2017-12-04] MEDS ORDERED: SORE THROAT SPRAY 20ml PO PRN (15:40)
[2017-12-04] MEDS ORDERED: ACETAMINOPHEN 500 MG TABLET PO PRN (15:40)
[2017-12-04] MEDS ORDERED: MELOXICAM 7.5 MG TABLET PO PRN (15:40)
[2017-12-04] MEDS ORDERED: NON-FORMULARY MEDICATION 1 EACH EACH (Exenatide Microspheres [Bydureon Pen] 2 MG) SQ SCH (15:45)
[2017-12-04] MEDS: HYDROCODONE/APAP 7.5 MG/325 MG TABLET PO PRN ×2 (17:01→22:26)
--- NOTE | 2017-12-04 17:01 | IRU History & Physical Report ---
HPI IRU Date: Date: 12/04/17 Time: 1652 Chief complaint: My arms and legs are very weak HPI: Ms. Banuelos is a very pleasant 66-year-old female referred by Dr. Brandon Colon at [facility]. Her primary care physician is Raymundo Martinez MD. She has a very extensive history of lumbar spine surgery and intervention, having undergone three prior L-spine surgeries. She has developed significant myelopathy. Most recently, she presented to Dr. Colon's office in August 2017 in a motorized wheelchair. She states that she had fallen in approximately December 2016 fracturing her left ankle which required surgical intervention. She did undergo physical therapy and occupational therapy and was on skilled care for a time. Despite that she has had progressive weakness over the last 12 months or so. She is able to get around in her home primarily in a motorized wheelchair. She could walk not more than 25 feet with a front-wheeled walker. She apparently underwent several evaluations including MRIs and EMG's/NCT's. Ultimately she was found to have significant cervical spine disease. The patient states that her legs feel like they are "wooden" and feel very heavy. She has evidence of severe ulnar neuropathy and "deformity" of her fingers bilaterally. She has weakness predominantly of her lower extremities but also upper extremities. Most recently she was admitted to [facility] on 2017 for C5-C7 ACDF (Anterior Cervical Discectomy and fusion) along with posterior laminectomy bilaterally at C5-C7 with posterior lateral fusion at these levels. She apparently previously had nerve conduction tests done and has evidence of significant myelopathy second due to the severe cervical spinal cord compression. She had weakness predominantly of the lower extremities but also somewhat of the upper extremities. In particular she is unable to provide good automatic shirring machine operator strength. (She reports she had a negative Lexiscan prior to the procedure.) The patient has history of diabetes mellitus. She states that she takes Bydureon once weekly which is due this Friday. She does not check her blood sugars at home. She recalls her last A1c being 7.3 about 2 months ago. Her weight has been stable over the last several months. The patient also has history of hypertension. She is on medications in this regard. The patient has developed multiple functional deficits as a result of her cervical spine myelopathy. She occasionally has urinary or fecal incontinence but she relates it more to the fact that she cannot get to the bathroom on time due to her mobility issues. Prior level of functioning indicates she was independent for eating, grooming, upper and lower body dressing, toileting and transfers. She was modified independent for bathing and toilet transfers. She was able to use a rolling walker 25-30 feet. She states that she no longer cooks at home and that her does that. He has installed an elevator outside to get into their home for the patient. She does not have any stairs to climb at the present time. Currently the patient is independent for eating and grooming but requires supervision for upper body dressing, maximum assistance for lower body dressing , moderate assistance for transfers and toilet transfers. She requires maximum assistance for walking with a rolling walker only 2 feet. She has adequate ankle strength but has markedly diminished strength in the lower extremities at the hips and knees. She has reduced bed mobility status and decreased tolerance to activity. She has difficulty ambulating and has significant gait training needs as well as posture and painter and body mechanic apprentice needs. Has difficulty extending the left index and middle finger. Medical Office Assistant strength is weak on the left side. The following medical conditions are noted and require active monitoring and/or management: 1. Cervical spinal cord impingement with recent surgical relief. 2. Upper and lower extremity weakness secondary to cervical spine myelopathy 3. Diabetes mellitus type 2 on injectable Bydureon and oral agents only. 4. Benign essential hypertension The following therapies will be needed: 1. Physical therapy: for transfers and ambulation and stairs. 2. Occupational therapy: for ADL's and transfers. 3. Medical management: for the above conditions. 4. 24 hour Rehabilitation Nursing to monitor and address the following: Provide close monitoring of skin status to prevent breakdown, reduce fall risk, provide additional activities between therapy sessions to improve her generalized weakness and muscle weakness. She requires close monitoring of her blood sugars. COUNTS INCLUDE 234 BEDS AT THE [facility] Patient Stated Medical History Hypertension Yes Myocardial Infarction No Other Cardiology Yes: stress test 2 yrs ago and found no problems Sleep Apnea No Diabetes Mellitus Type 1 No Diabetes Mellitus Type 2 Yes Gastroesophageal Reflux Yes Disease Osteoarthritis Yes Depression Yes Post Menopausal Yes Now No Clinic Medical History (Last Reviewed 07/16/17 @ 12:32 by CYNDY Rao) Osteoporosis (Chronic Medical) GERD (gastroesophageal reflux disease) (Chronic Medical) Surgical History: General: gallbladder, hernia, back (three lumbar surgeries - 2002, 2007, 2011), colonoscopy. Reproductive/: , ectopic removal. Lt ankle Fx & surg 12-31-16/ ORIF Lt Ankle 12/31/16. Carpal tunnel procedure left side, approximately 15 years ago Family History: Family History (Last Reviewed 11/03/17 @ 14:36 by Radha Johnson [facility]) Mother COPD (chronic obstructive pulmonary disease) High blood pressure Arthritis Father Arthritis Cancer of prostate High blood pressure Family History Updates: Patient's father of heart disease and diabetes. Mother with pulmonary fibrosis, COPD and also had coronary artery disease with stent placement. - Social History Smoking status: Former smoker (smoked one pack daily from age 19 through age 25. 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 Review of Systems - Constitutional Constitutional: Present: fatigue, weakness. Absent: anorexia, chills, fever(s) , headache(s), lethargy, malaise, night sweats, weight gain, weight loss - EENMT Eyes: Absent: blurry vision, change in vision, diplopia Mouth/Throat: Absent: changes in swallowing, painful swallowing, change in taste , bleeding gums, change in voice - Cardiovascular Cardiovascular: Absent: chest pain, palpitations, syncope, dyspnea on exertion, orthopnea, edema, cyanosis, heart murmur Rhythm: Present: regular rhythm Vascular: Absent: intermittent claudication, pedal edema, unilateral swelling - Respiratory Respiratory: Absent: cough, dyspnea, hemoptysis, dyspnea on exertion, wheezing, pain on inspiration, chest congestion, excessive phlegm production - Gastrointestinal Gastrointestinal: Absent: abdominal pain, change in bowel habits, constipation, diarrhea, dyspepsia, dysphagia, early satiety, hematochezia, melena, nausea, vomiting - Genitourinary Genitourinary: Present: urinary incontinence (rarely and typically related to mobility issues in terms of getting to the bathroom on time.) - Musculoskeletal Musculoskeletal: Present: myalgias. Absent: abnormal gait, arthralgias, back pain, joint swelling, limited range of motion, muscle weakness - Integumentary/Breasts Integumentary: Absent: alopecia, erythema, lesions, pruritus, rash, jaundice - Neurological Neurological: Absent: abnormal gait, abnormal movements, abnormal speech, confusion, convulsions, dizziness, focal weakness, frequent falls, headache(s), loss of vision, memory loss, numbness, paresthesias, tremor(s) - Psychiatric Psychiatric: Present: anxiety. Absent: abnormal sleep pattern, depression Psychiatric Comments: Insomnia - Endocrine Endocrine: Absent: cold intolerance, flushing, heat intolerance, palpitations - Hematologic/Lymphatic Hematologic/Lymphatic: Absent: easy bleeding, easy bruising, lymphadenopathy - Allergic/Immunologic Allergic/Immunologic: Absent: urticaria Medications Home Medications Medication Instructions Recorded Confirmed Type Pantoprazole Sodium [Protonix] 40 mg PO DAILY #0 04/24/10 12/04/17 History Acetaminophen [Acetaminophen Extra 500 mg PO Q4HR PRN 12/31/16 12/04/17 History Strength] Losartan Potassium 25 mg PO DAILY 12/31/16 12/04/17 History Meloxicam 7.5 mg PO DAILY PRN 12/31/16 12/04/17 History alendronate 70 mg tablet 70 mg PO WEEKLY tab 03/05/17 12/04/17 History Celexa (citalopram) 20 mg tablet 20 mg PO DAILY tab 04/02/17 12/04/17 History cyanocobalamin (vit B-12) 1,000 1,000 mcg PO DAILY ml 04/02/17 12/04/17 History mcg/15 mL oral liquid Januvia (sitagliptin) 100 mg tablet 100 mg PO DAILY 05/30/17 12/04/17 History ascorbic acid (vitamin C) 1,000 mg 0.5 tab PO DAILY 05/30/17 12/04/17 History tablet multivitamin tablet 1 tab PO DAILY 05/30/17 12/04/17 History cholecalciferol (vitamin D3) 1,000 1,000 unit PO DAILY tab 06/10/17 12/04/17 History unit tablet coenzyme Q10 (ubiquinol) 200 mg 200 mg PO Q12H 06/10/17 12/04/17 History capsule Lyrica (pregabalin) 75 mg capsule 75 mg PO DAILY #30 cap 10/10/17 12/04/17 Rx baclofen 10 mg tablet 10 mg PO QID tab 11/03/17 12/04/17 History exenatide ER 2 mg/0.65 mL 2 mg SQ Q7D 11/03/17 12/04/17 History subcutaneous pen injector Calcium Citrate/Vitamin D3 1 each PO BID 12/04/17 12/04/17 History [Calcium Citrate - Vit D Caplet] Docusate Sodium [Colace] 1 cap PO BID 12/04/17 12/04/17 History Hydrocodone/APAP 7.5/325 [[place] 1 - 2 tab PO Q4HR PRN 12/04/17 12/04/17 History 7.5/325] LORazepam [Ativan] 0.5 mg PO Q4HR PRN 12/04/17 12/04/17 History Lidocaine 5% Patch [Lidoderm] 1 each TOP BID 12/04/17 12/04/17 History Magnesium Oxide [Magnesium] 400 mg PO BID 12/04/17 12/04/17 History Metoclopramide [Reglan] 10 mg PO Q6HR PRN 12/04/17 12/04/17 History Milk of Magnesia 30 ml PO DAILY PRN 12/04/17 12/04/17 History PEG 3350 17gm PACKET [Miralax] 17 gm PO DAILY 12/04/17 12/04/17 History Pravastatin [Pravachol] 1 tab PO DAILY 12/04/17 12/04/17 History Sore Throat [place] [Chloraseptic 1 spray PO DAILY PRN 12/04/17 12/04/17 History [place]] Temazepam [Restoril] 15 mg PO HS PRN 12/04/17 12/04/17 History Triamcinolone 0.1% Cream 15 G 1 applicatio TOP BID 12/04/17 12/04/17 History [Kenalog] Allergies Allergy/AdvReac Type Severity Reaction Status Date / Time cefazolin Allergy Mild Rash Verified 11/03/17 14:38 Results IRU - Labs Labs: I have reviewed outside records. Exam Vital Signs: Temperature 98.9 F 12/04/17 14:52 Pulse Rate 100 12/04/17 14:52 Respiratory Rate 18 12/04/17 14:52 Blood Pressure 121/59 12/04/17 14:52 Pulse Oximetry 93 07/19/18 14:52 Height/Weight/BMI: Weight 106.2 kg - Constitutional Present: no acute distress, well nourished, well developed, morbidly obese, cooperative - Routine HEENT Exam Head: Present: normocephalic, atraumatic. Absent: cushingoid faces, abrasion, laceration, hematoma Eye: Present: EOMI, PERRL. Absent: conjunctival icterus, scleral injection, periorbital swelling, nystagmus ENT: Present: mucous membranes moist Comments: Anterior cervical incision is healing well without evidence of inflammation nor infection. Posterior wound not currently evaluated as it is covered with a dressing. - Routine Neck Exam Present: supple, trachea midline. Absent: full ROM, lymphadenopathy, thyromegaly, tenderness, swelling - Routine Chest/Breast/Axilla Exam Chest wall: Absent: tenderness, mass Axillae: Absent: lymphadenopathy, mass - Routine Respiratory Exam Present: CTA bilaterally. Absent: accessory muscle use, decreased breath sounds , prolonged expiratory phase, rales, respiratory distress, rhonchi, stridor, wheezes, crackles, distant breath sounds - Routine Cardiovascular Exam Present: RRR, S1, S2, no murmur. Absent: gallop, S3, S4, click, irregular rhythm - Routine Abdominal Exam Present: soft, normoactive bowel sounds, non distended, non tender. Absent: rebound, guarding, firm, rigid, organomegaly, mass, hernia, wound - Routine Extremities Exam Present: no edema, non tender, normal capillary refill. Absent: cyanosis, clubbing - Routine Back/Spine/Pelvis Exam Back/Spine: Present: full ROM. Absent: scoliosis, kyphosis - Routine Skin Exam Present: intact, dry, warm. Absent: cyanosis, erythema, pallor, mottling, petechiae, urticaria, lesions, jaundice - Routine Neurological Exam Present: alert, oriented X3, CN II-XII intact, motor deficit (patient has flexion deformity of some of the fingers of the left hand. 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 Has good strength upon flexion and extension at the elbows. Lower extremities are weak. Dorsiflexion and plantar flexion at the ankles are good; however patient is unable to lift up either leg from the bed against resistance. She can lift them up about 2-3 inches without resistance.), moving all extremities, normal speech - Routine Psychiatric Exam Present: normal affect, normal thought process, cooperative, good insight, good judgment. Absent: depressed, anxious Sepsis Assessment - Evaluation Severe Sepsis: none seen IRU A/P (1) Cervical spinal cord compression Current visit: Yes Status: Chronic (2) Myelopathy Current visit: Yes Status: Chronic (3) DM type 2 (diabetes mellitus, type 2) Qualifiers: Diabetes mellitus skilled nursing insulin use: without skilled nursing use Diabetes mellitus complication status: without complication Qualified Code(s): E11.9 - Type 2 diabetes mellitus without complications Current visit: Yes Status: Chronic (4) Hypertension Qualifiers: Hypertension type: essential hypertension Qualified Code(s): I10 - Essential (primary) hypertension Current visit: Yes Status: Chronic (5) Obesity, Class III, BMI 40-49.9 (morbid obesity) Current visit: Yes Status: Chronic DVT Prophylaxis: SCD's Resuscitation Status: Full Code - Course Hospital Course: Ariel Mejia MD: - Interventions to Obtain Goals PT Treatment Plan: Balance/Proprioception, Functional Activities, Gait Training , Patient/Family Education, Therapeutic Exercise Goals Progress/Modifications: This patient appears to have severe cervical spine related myelopathy. She has significant weakness of all 4 extremities lower extremities worse than upper. In addition she has diabetes mellitus which is at risk of hyperglycemia or hypoglycemia in view of additional energy demands from therapy. She is at risk for skin breakdown and further muscle weakness. A multidisciplinary approach will be undertaken with PT, OT with 24 hour rehabilitation nursing monitoring of blood sugars and to reduce risk of skin breakdown.
[2017-12-04 17:03] VITALS: BMI 42.7
[2017-12-04] MEDS: BACLOFEN 10 MG TABLET PO SCH ×2 (17:14→22:26)
--- NOTE | 2017-12-04 17:20 | IRU 24Hr Post Admit Eval ---
24 Hr Post Admission Physical - Relevant Changes Relevant Changes: No Reviewed: I have reviewed the patient's information and concur with the finding and results of the pre-admission screen. Certification: I certify the patient for rehabilitation. - Patient Condition (1) Cervical spinal cord compression Status: Chronic Code(s): G95.20 - Unspecified cord compression Classification: Diagnosis Requiring Medical Follow Up (2) Myelopathy Status: Chronic Code(s): G95.9 - Disease of spinal cord, unspecified Classification: Present on IRF Admission, IRF Tx That Should Address Diagnosis, Diagnosis Requiring Medical Follow Up (3) DM type 2 (diabetes mellitus, type 2) Status: Chronic Qualifiers: Diabetes mellitus intermediate insulin use: without terminal superintendent use Diabetes mellitus complication status: without complication Qualified Code(s): E11.9 - Type 2 diabetes mellitus without complications Code(s): E11.9 - Type 2 diabetes mellitus without complications Classification: Present on IRF Admission, IRF Tx That Should Address Diagnosis, Diagnosis Requiring Medical Follow Up (4) Hypertension Status: Chronic Qualifiers: Hypertension type: essential hypertension Qualified Code(s): I10 - Essential (primary) hypertension Code(s): I10 - Essential (primary) hypertension Classification: Present on IRF Admission, IRF Tx That Should Address Diagnosis, Diagnosis Requiring Medical Follow Up (5) Obesity, Class III, BMI 40-49.9 (morbid obesity) Status: Chronic Code(s): E66.01 - Morbid (severe) obesity due to excess calories Classification: Present on IRF Admission, Diagnosis Requiring Medical Follow Up - Prior Functional Status Lives With: Spouse Residence Type: Apartment/Private Home Assitive Devices: Front Wheeled Walker, Motorized Wheelchair Prior Functional Status: Depend. at home or school, Depend. w/ IADL - Current Functional Status Current Level of Function: Currently the patient is independent for eating and grooming but requires supervision for upper body dressing, maximum assistance for lower body dressing , moderate assistance for transfers and toilet transfers. She requires maximum assistance for walking with a rolling walker only 2 feet. She has adequate ankle strength but has markedly diminished strength in the lower extremities at the hips and knees. She has reduced bed mobility status and decreased tolerance to activity. She has difficulty ambulating and has significant gait training needs as well as posture and body painter needs. Has difficulty extending the left index and middle finger. Regenerator Operator strength is weak on the left side. Failed Alternative Therapy: Arrived from Acute Care Patient Requirements: The patient requires oversight by rehabilitation physician to manage their rehabilitation treatment plan and multidisciplinary approach to care that can only be provided in an IRF and requires a multidisciplinary approach to care, provided by professional PTs, OTs, STs, dieticians, RTs, rehabilitation nurses and is not available in lesser levels of care. Limitations Req: Mobility Impairment, ADL Impairment Physical Therapy Minutes: 90 Occupational Therapy Minutes: 90 Therapy: The patient is to receive therapy at least 5 days a week. - Complications/Comorbidities Impact on Functional Outcomes: This patient's long-term cervical myelopathy with resultant muscle weakness will negatively impact her functional outcome. Barriers to Discharge: Weakness, Balance, Endurance - Plan to Avoid Complications Plan to Avoid Complications: The patient cannot receive this care in a lesser intensive setting such as Prison or Outpatient Therapy due to the patient requiring the following : Patient requires an intensive program of therapy to involve physical therapy and occupational therapy in view of her severe cervical spine myelopathy. She requires 24-hour nursing monitoring of her blood sugars, monitoring of skin status to prevent breakdown and to provide additional activities between therapy sessions. She requires medical supervision in view of these medical issues.
[2017-12-04] MEDS ORDERED: CALCIUM CITRATE 315mg + VIT.D 250units TABLET PO SCH (21:00)
[2017-12-04] MEDS: TRIAMCINOLONE 0.1% CREAM 15 G TUBE TOP SCH (22:26)
[2017-12-04] MEDS: COENZYME Q-10 200mg TABLET PO SCH (22:26)
[2017-12-04] MEDS: DOCUSATE SODIUM 100 MG CAPSULE PO SCH (22:27)
[2017-12-04] MEDS: CALCIUM 500 + VIT D 200 TABLET PO SCH (22:27)
[2017-12-04] MEDS: MAGNESIUM OXIDE 400 MG TABLET PO SCH (22:27)
[2017-12-04] MEDS: LIDOCAINE PATCH REMOVAL TOP SCH (22:28)
[2017-12-05] MEDS: ALENDRONATE 70 MG TABLET PO SCH (06:03)
[2017-12-05] MEDS: HYDROCODONE/APAP 7.5 MG/325 MG TABLET PO PRN ×4 (06:03→20:32)
[2017-12-05] MEDS: LIDOCAINE 5% PATCH TOP SCH (08:47)
[2017-12-05] MEDS: TRIAMCINOLONE 0.1% CREAM 15 G TUBE TOP SCH ×2 (08:48→20:31)
[2017-12-05] MEDS: CALCIUM 500 + VIT D 200 TABLET PO SCH ×2 (08:49→20:41)
[2017-12-05] MEDS: DOCUSATE SODIUM 100 MG CAPSULE PO SCH ×2 (08:49→20:32)
[2017-12-05] MEDS: CYANOCOBALAMIN (B-12) 500mcg TABLET PO SCH (08:49)
[2017-12-05] MEDS: MAGNESIUM OXIDE 400 MG TABLET PO SCH ×2 (08:49→20:32)
[2017-12-05] MEDS: COENZYME Q-10 200mg TABLET PO SCH ×2 (08:49→20:31)
[2017-12-05] MEDS: PREGABALIN 75 MG CAPSULE PO SCH (08:50)
[2017-12-05] MEDS: PANTOPRAZOLE 40 MG TABLET PO SCH (08:50)
[2017-12-05] MEDS: CITALOPRAM 20 MG TABLET PO SCH (08:50)
[2017-12-05] MEDS: ASCORBIC ACID 500 MG TABLET PO SCH (08:50)
[2017-12-05] MEDS: MULTI-VITAMIN PLAIN TABLET PO SCH (08:51)
[2017-12-05] MEDS: LOSARTAN 50 MG TABLET PO SCH (08:51)
[2017-12-05] MEDS: SITAGLIPTIN 100 MG TABLET PO SCH (08:51)
[2017-12-05] MEDS: BACLOFEN 10 MG TABLET PO SCH ×4 (08:51→20:32)
[2017-12-05] MEDS: PRAVASTATIN 20 MG TABLET PO SCH (08:52)
[2017-12-05] MEDS ORDERED: POLYETHYL GLYCOL 3350 17gm PACKET PO SCH (09:00)
[2017-12-05] MEDS: EXENATIDE 2 MG SQ SCH (10:18)
--- NOTE | 2017-12-05 12:52 | Consult Note ---
Consult Information - Data of Consult Consult date: 12/05/17 Requesting Physician: Ariel Mejia MD Primary Care Provider: Raymundo Martinez MD - Consult Narrative Reason for consult: Medical management History of present illness: Patient is a 67-year-old female who was admitted to IRU yesterday. Her primary care physician is Raymundo Martinez. Dr Colon performed C5-C7 anterior cervical discectomy and fusion along with posterior lateral fusion, posterior laminectomy bilaterally at C5-C7 on 12/02/17. She has chronic upper and lower extremity weakness secondary to cervical spine myelopathy. She's had progressive weakness over the past 12 months. She states she is able to walk about 25 feet in her house with the help of her walker and her . She has a history of undergoing 3 prior lumbar spine surgeries. She has seen Dr. Watts for neuropathy type symptoms and states she sees Dr. Vallejo for her osteoarthritis. Her other chronic health problems include diabetes mellitus type 2 who for which she takes weekly exenatide injections and daily sitagliptin. She thinks her last A1c was done approximate 2 months ago and was 7.3. She takes pregabalin for her neuropathy and is on alendronate weekly for her osteoporosis. She takes losartan for hypertension. Past Medical History Medical History: Medical History (Last Updated 12/05/17 @ 16:51 by Glendy Celaya MD) Osteoporosis (Chronic) GERD (gastroesophageal reflux disease) (Chronic) Cervical myelopathy Diabetes mellitus type 2 in obese HTN (hypertension) Surgical History: General: gallbladder, hernia, back (three lumbar surgeries - 2002, 2007, 2011), colonoscopy. Reproductive/: , ectopic removal. Lt ankle Fx & surg 12-31-16/ ORIF Lt Ankle 12/31/16. Carpal tunnel procedure left side, approximately 15 years ago. C5-C7 anterior cervical discectomy and fusion, bilateral posterior laminectomy/posterior lateral fusion C5-C7 (Dr. Colon 12/03) Family History: Family History (Last Reviewed 11/03/17 @ 14:36 by Radha Johnson Yessenia) Mother COPD (chronic obstructive pulmonary disease) High blood pressure Arthritis Father Arthritis Cancer of prostate High blood pressure Family History Updates: Patient's father of heart disease and diabetes. Mother with pulmonary fibrosis, COPD and also had coronary artery disease with stent placement. Family History: As Above - Social History Smoking status: Former smoker (quit at age 25) Substance use type: does not use Alcohol intake frequency: former alcohol drinker (quit 30 years ago) Housing: house Household members: spouse Current occupational status: disabled Current residence: Apartment/Private Home Social history: PCP-Dr. Martinez Neurosurgeon-Dr. Colon Neurologist-Dr. Watts Orthopedist-Dr. Vallejo Review of Systems All systems PM: 10-point ROS was reviewed, no additional remarkable complaints except (neck pain, fatigue) Medications Home Medications Medication Instructions Recorded Confirmed Type Pantoprazole Sodium [Protonix] 40 mg PO DAILY #0 04/24/10 12/04/17 History Acetaminophen [Acetaminophen Extra 500 mg PO Q4HR PRN 12/31/16 12/04/17 History Strength] Losartan Potassium 25 mg PO DAILY 12/31/16 12/04/17 History Meloxicam 7.5 mg PO DAILY PRN 12/31/16 12/04/17 History alendronate 70 mg tablet 70 mg PO WEEKLY tab 03/05/17 12/04/17 History Celexa (citalopram) 20 mg tablet 20 mg PO DAILY tab 04/02/17 12/04/17 History cyanocobalamin (vit B-12) 1,000 1,000 mcg PO DAILY ml 04/02/17 12/04/17 History mcg/15 mL oral liquid Januvia (sitagliptin) 100 mg tablet 100 mg PO DAILY 05/30/17 12/04/17 History ascorbic acid (vitamin C) 1,000 mg 0.5 tab PO DAILY 05/30/17 12/04/17 History tablet multivitamin tablet 1 tab PO DAILY 05/30/17 12/04/17 History cholecalciferol (vitamin D3) 1,000 1,000 unit PO DAILY tab 06/10/17 12/04/17 History unit tablet coenzyme Q10 (ubiquinol) 200 mg 200 mg PO Q12H 06/10/17 12/04/17 History capsule Lyrica (pregabalin) 75 mg capsule 75 mg PO DAILY #30 cap 10/10/17 12/04/17 Rx baclofen 10 mg tablet 10 mg PO QID tab 11/03/17 12/04/17 History exenatide ER 2 mg/0.65 mL 2 mg SQ Q7D 11/03/17 12/04/17 History subcutaneous pen injector Calcium Citrate/Vitamin D3 1 each PO BID 12/04/17 12/04/17 History [Calcium Citrate - Vit D Caplet] Docusate Sodium [Colace] 1 cap PO BID 12/04/17 12/04/17 History Hydrocodone/APAP 7.5/325 [[place] 1 - 2 tab PO Q4HR PRN 12/04/17 12/04/17 History 7.5/325] LORazepam [Ativan] 0.5 mg PO Q4HR PRN 12/04/17 12/04/17 History Lidocaine 5% Patch [Lidoderm] 1 each TOP BID 12/04/17 12/04/17 History Magnesium Oxide [Magnesium] 400 mg PO BID 12/04/17 12/04/17 History Metoclopramide [Reglan] 10 mg PO Q6HR PRN 12/04/17 12/04/17 History Milk of Magnesia 30 ml PO DAILY PRN 12/04/17 12/04/17 History PEG 3350 17gm PACKET [Miralax] 17 gm PO DAILY 12/04/17 12/04/17 History Pravastatin [Pravachol] 1 tab PO DAILY 12/04/17 12/04/17 History Sore Throat [place] [Chloraseptic 1 spray PO DAILY PRN 12/04/17 12/04/17 History [place]] Temazepam [Restoril] 15 mg PO HS PRN 12/04/17 12/04/17 History Triamcinolone 0.1% Cream 15 G 1 applicatio TOP BID 12/04/17 12/04/17 History [Kenalog] Allergies Allergy/AdvReac Type Severity Reaction Status Date / Time cefazolin Allergy Mild Rash Verified 11/03/17 14:38 Exam Vital Signs: Temperature 97.2 F 12/05/17 08:00 Pulse Rate 91 12/05/17 08:00 Respiratory Rate 16 12/05/17 08:00 Blood Pressure 144/69 H 12/05/17 08:00 Pulse Oximetry 94 12/05/17 08:00 Height/Weight/BMI: Height 1.57 m Weight 106.1 kg Body Mass Index 42.7 - Constitutional Present: no acute distress, well nourished, well developed, obese - Routine HEENT Exam Head: Present: normocephalic, atraumatic ENT: Present: mucous membranes moist, oropharynx clear - Routine Neck Exam Comments: Neck brace in place Has woundvac/drain intact draining bloody fluid - Routine Respiratory Exam Present: CTA bilaterally. Absent: wheezes - Routine Cardiovascular Exam Present: RRR, no murmur - Routine Abdominal Exam Present: soft, normoactive bowel sounds. Absent: tenderness, distended - Routine Extremities Exam Present: no edema, normal capillary refill - Routine Skin Exam Present: dry, warm - Routine Neurological Exam Present: alert, oriented X3, CN II-XII intact, moving all extremities, normal speech - Routine Psychiatric Exam Present: normal affect, cooperative Results - Labs CBC & Chem 7: 12/05/17 04:44 12/05/17 04:44 Assessment and Plan (1) Cervical myelopathy Current visit: Yes Status: Acute Assessment and Plan: Assessment S/p anterior cervical discectomy and fusion and posterior laminectomy and fusion at C5-C7 spinal cord impingement (12/02/17-Dr. Colon) Extremity weakness secondary to cervical spine myelopathy HTN Type 2 diabetes mellitus, controlled (recent A1c 7.3) GERD Osteoarthritis Depression Morbid Obesity, BMI 42.8 Plan Agree with admission to IRU for pain control and further rehabilitation. Accu-Cheks. Continue home diabetes medications. If readings are consistently greater than 200 will start sliding scale insulin. Monitor blood pressures. Continue home losartan. Currently has Kang catheter. Once she is more mobile will discontinue. Pantoprazole for GERD and GI ppx. SCD's for DVT ppx. Care to return to Dr Martinez on dismissal. DVT Prophylaxis: SCD's Resuscitation Status: Full Code - Physician Narrative Physician: Glendy Celaya MD Narrative: Date: 12/05/17 Time: 1719 I have independently evaluated and examined this patient. I reviewed the chart, the patient's history, and the SYSTEMS DEVELOPMENT MANAGER/PA's documented findings as above. We discussed and formulated the assessment and plan as above with additions as below: Mrs. Banuelos was seen in the dining room. She reports having some numbness in her feet but no numbness in her hands due to cervical myelopathy, she describes weakness and clumsiness in all 4 extremities. Weakness has been evolving over a year and she was found to have spinal cord compression at C6-C7 causing severe central stenosis/cord edema by MRI in late August prompting cervical spinal decompression. She hopes to strengthen while in IRU. NAD, alert; in hard cervical collar, bloody drainage in ANIVAL tubing Clear evidence of weakness with extension at the wrist and extension of some digits of the hands; sensation grossly intact proximal legs and arms Generalized weakness lower extremities-positioning precluded formal strength testing Respirations nonlabored, good airflow, breath sounds clear Blood sugars modestly elevated since transfer ranging from 167-220; corrective insulin added to regimen. Her other labs unremarkable. Hospital Course Summary Disclaimer: The visit summary below is not to be considered part of the above Progress Note. Hospital Course: 12/05/17 Agree with admission to IRU for pain control and further rehabilitation. Accu-Cheks. Continue home diabetes medications. If readings are consistently greater than 200 will start sliding scale insulin. Monitor blood pressures. Continue home losartan. Currently has Kang catheter. Once she is more mobile will discontinue. Pantoprazole for GERD and GI ppx. SCD's for DVT ppx. Care to return to Dr Martinez on dismissal.
[2017-12-05] MEDS ORDERED: FALL RISK - PHARMACY CONSULT MC ONE (12:57)
[2017-12-05] MEDS: LIDOCAINE PATCH REMOVAL TOP SCH (20:32)
[2017-12-06] MEDS: HYDROCODONE/APAP 7.5 MG/325 MG TABLET PO PRN ×4 (06:03→19:03)
[2017-12-06] MEDS: BACLOFEN 10 MG TABLET PO SCH ×4 (09:34→20:08)
[2017-12-06] MEDS: DOCUSATE SODIUM 100 MG CAPSULE PO SCH ×2 (09:34→20:08)
[2017-12-06] MEDS: TRIAMCINOLONE 0.1% CREAM 15 G TUBE TOP SCH ×2 (09:34→20:09)
[2017-12-06] MEDS: LIDOCAINE 5% PATCH TOP SCH (09:34)
[2017-12-06] MEDS: LOSARTAN 50 MG TABLET PO SCH (09:35)
[2017-12-06] MEDS: CITALOPRAM 20 MG TABLET PO SCH (09:35)
[2017-12-06] MEDS: PRAVASTATIN 20 MG TABLET PO SCH (09:35)
[2017-12-06] MEDS: PANTOPRAZOLE 40 MG TABLET PO SCH (09:35)
[2017-12-06] MEDS: SITAGLIPTIN 100 MG TABLET PO SCH (09:35)
[2017-12-06] MEDS: PREGABALIN 75 MG CAPSULE PO SCH (09:36)
[2017-12-06] MEDS: SENNOSIDES 8.6 MG TABLET PO SCH ×2 (09:41→20:08)
[2017-12-06] MEDS: ASCORBIC ACID 500 MG TABLET PO SCH (10:11)
[2017-12-06] MEDS: CALCIUM 500 + VIT D 200 TABLET PO SCH ×2 (10:11→20:07)
[2017-12-06] MEDS: COENZYME Q-10 200mg TABLET PO SCH ×2 (10:12→20:07)
[2017-12-06] MEDS: CYANOCOBALAMIN (B-12) 500mcg TABLET PO SCH (10:12)
[2017-12-06] MEDS: MAGNESIUM OXIDE 400 MG TABLET PO SCH ×2 (10:12→20:08)
[2017-12-06] MEDS: MULTI-VITAMIN PLAIN TABLET PO SCH (10:13)
[2017-12-06] MEDS ORDERED: ONDANSETRON ODT 4 MG TABLET PO PRN (10:53)
--- NOTE | 2017-12-06 10:55 | IRU Plan of Care ---
[facility] Overall Plan of Care - Date Date: 12/06/17 - Patient Impairments (1) Cervical myelopathy Code(s): G95.9 - Disease of spinal cord, unspecified Status: Chronic Classification: Present on IRF Admission, IRF Tx That Should Address Diagnosis, Diagnosis Requiring Medical Follow Up (2) DM type 2 (diabetes mellitus, type 2) Qualifiers: Diabetes mellitus meterman insulin use: without custodial use Diabetes mellitus complication status: without complication Qualified Code(s): E11.9 - Type 2 diabetes mellitus without complications Code(s): E11.9 - Type 2 diabetes mellitus without complications Status: Chronic Classification: Present on IRF Admission, IRF Tx That Should Address Diagnosis, Diagnosis Requiring Medical Follow Up (3) Hypertension Qualifiers: Hypertension type: essential hypertension Qualified Code(s): I10 - Essential (primary) hypertension Code(s): I10 - Essential (primary) hypertension Status: Chronic Classification: Present on IRF Admission, IRF Tx That Should Address Diagnosis, Diagnosis Requiring Medical Follow Up - Relevant Changes Relevant Changes: No Reviewed: I have reviewed the patient's information and concur with the finding and results of the pre-admission screen. Certification: I certify the patient for rehabilitation. - Medical Prognosis Medical Prognosis: Good Vital Signs: Last Vital Signs Temp 99.2 F 12/06/17 07:54 Pulse 93 12/06/17 07:54 Resp 16 12/06/17 07:54 BP 146/67 H 12/06/17 07:54 Pulse Ox 92 12/06/17 07:54 - Anticipated Interventions Anticipated Interventions: The patient requires inpatient IRF care for PT, OT, and/or ST for residuals remaining from cervical spinal cord impingement with myelopathy resulting in muscular weakness and strength deficits. Strength Deficits: Right Upper Extremity, Right Lower Extremity, Left Upper Extremity, Left Lower Extremity - Current Functional Status Failed Alternative Therapy: Arrived from Acute Care Patient Requires: The patient requires oversight by rehabilitation physician to manage their rehabilitation treatment plan and multidisciplinary approach to care that can only be provided in an IRF and requires a multidisciplinary approach to care, provided by professional PTs, OTs, STs, rehabilitation nurses, and may require STs, dieticians, and RTS. This is not available in lesser levels of care. Physical Therapy Minutes: 90 Occupational Therapy Minutes: 90 Therapy: The patient is to receive therapy at least 5 days a week. - Anticipated LOS/Outcomes Anticipated Functional Outcome: It is anticipated the patient will be able to return home and be able to ambulate at modified independent level or better. She will still require minimum to moderate assistance with ADL's and IADL's. Anticipated Length of Stay (days): 14 Anticipated DC Destination: Home, Self Care, Home Health Service Home Safety Plan: The patient will be provided with the development of a Home Safety Plan for return to a home or home-like environment and and to ensure safety post discharge. - Plan to Avoid Complications Barriers to Attaining Goals: Weakness, Balance, Endurance Plan to Avoid Complications: The patient cannot receive this care in a lesser intensive setting such as Residential or Outpatient Therapy due to the patient requiring the following : Patient requires 24 hour rehab nursing to monitor her blood sugars and treat hypo- or hyperglycemia. She requires additional activity between therapy sessions which can be provided by nursing staff. She requires a multidisciplinary approach with PT and OT and medical supervision with medical oversight due to her diabetes, obesity and recent surgery.
[2017-12-06] MEDS: LIDOCAINE PATCH REMOVAL TOP SCH (20:08)
[2017-12-07] MEDS: HYDROCODONE/APAP 7.5 MG/325 MG TABLET PO PRN ×5 (00:54→22:02)
[2017-12-07] MEDS: SENNOSIDES 8.6 MG TABLET PO SCH ×2 (08:24→20:54)
[2017-12-07] MEDS: LIDOCAINE 5% PATCH TOP SCH (08:37)
[2017-12-07] MEDS: ASCORBIC ACID 500 MG TABLET PO SCH (08:37)
[2017-12-07] MEDS: DOCUSATE SODIUM 100 MG CAPSULE PO SCH ×2 (08:38→20:54)
[2017-12-07] MEDS: PREGABALIN 75 MG CAPSULE PO SCH (08:38)
[2017-12-07] MEDS: BACLOFEN 10 MG TABLET PO SCH ×4 (08:39→20:54)
[2017-12-07] MEDS: COENZYME Q-10 200mg TABLET PO SCH ×2 (08:39→20:54)
[2017-12-07] MEDS: LOSARTAN 50 MG TABLET PO SCH (08:39)
[2017-12-07] MEDS: PRAVASTATIN 20 MG TABLET PO SCH (08:39)
[2017-12-07] MEDS: MAGNESIUM OXIDE 400 MG TABLET PO SCH ×2 (08:39→20:54)
[2017-12-07] MEDS: PANTOPRAZOLE 40 MG TABLET PO SCH (08:40)
[2017-12-07] MEDS: CYANOCOBALAMIN (B-12) 500mcg TABLET PO SCH (08:40)
[2017-12-07] MEDS: CITALOPRAM 20 MG TABLET PO SCH (08:40)
[2017-12-07] MEDS: CALCIUM 500 + VIT D 200 TABLET PO SCH ×2 (08:40→20:54)
[2017-12-07] MEDS: SITAGLIPTIN 100 MG TABLET PO SCH (08:40)
[2017-12-07] MEDS: MULTI-VITAMIN PLAIN TABLET PO SCH (08:41)
[2017-12-07] MEDS: TRIAMCINOLONE 0.1% CREAM 15 G TUBE TOP SCH ×2 (08:41→20:56)
[2017-12-07] MEDS: LIDOCAINE PATCH REMOVAL TOP SCH (20:57)
[2017-12-08] MEDS: HYDROCODONE/APAP 7.5 MG/325 MG TABLET PO PRN ×4 (06:02→21:21)
[2017-12-08] MEDS: LIDOCAINE 5% PATCH TOP SCH (08:32)
[2017-12-08] MEDS: MULTI-VITAMIN PLAIN TABLET PO SCH (08:33)
[2017-12-08] MEDS: TRIAMCINOLONE 0.1% CREAM 15 G TUBE TOP SCH ×2 (08:33→21:10)
[2017-12-08] MEDS: CYANOCOBALAMIN (B-12) 500mcg TABLET PO SCH (08:33)
[2017-12-08] MEDS: PANTOPRAZOLE 40 MG TABLET PO SCH (08:33)
[2017-12-08] MEDS: ASPIRIN 325 MG TABLET PO SCH (08:33)
[2017-12-08] MEDS: BACLOFEN 10 MG TABLET PO SCH ×4 (08:34→21:08)
[2017-12-08] MEDS: PREGABALIN 75 MG CAPSULE PO SCH (08:34)
[2017-12-08] MEDS: PRAVASTATIN 20 MG TABLET PO SCH (08:34)
[2017-12-08] MEDS: DOCUSATE SODIUM 100 MG CAPSULE PO SCH ×2 (08:34→21:08)
[2017-12-08] MEDS: COENZYME Q-10 200mg TABLET PO SCH ×2 (08:34→21:08)
[2017-12-08] MEDS: ASCORBIC ACID 500 MG TABLET PO SCH (08:34)
[2017-12-08] MEDS: CITALOPRAM 20 MG TABLET PO SCH (08:35)
[2017-12-08] MEDS: MAGNESIUM OXIDE 400 MG TABLET PO SCH ×2 (08:35→21:08)
[2017-12-08] MEDS: LOSARTAN 50 MG TABLET PO SCH (08:35)
[2017-12-08] MEDS: CALCIUM 500 + VIT D 200 TABLET PO SCH ×2 (08:36→21:08)
[2017-12-08] MEDS: SENNOSIDES 8.6 MG TABLET PO SCH ×2 (08:37→21:08)
[2017-12-08] MEDS: SITAGLIPTIN 100 MG TABLET PO SCH (08:37)
--- NOTE | 2017-12-08 16:16 | IRU Progress Note ---
- Subjective/Serverity of Illness Date: 12/08/17 Patient seems like she is doing well. Making progress in therapy and pain seems to be adequately controlled. Still has quite a bit of weakness in legs and L is worse than R according to patient. Exam Vital Signs: Temperature 98.7 F 12/08/17 15:29 Pulse Rate 85 12/08/17 15:29 Respiratory Rate 18 12/08/17 15:29 Blood Pressure 121/66 12/08/17 15:29 Pulse Oximetry 95 12/08/17 15:29 Height/Weight/BMI: Height 1.57 m Weight 106.1 kg Body Mass Index 42.7 - Constitutional Present: no acute distress - Routine Respiratory Exam Present: CTA bilaterally - Routine Cardiovascular Exam Present: RRR, no murmur - Routine Abdominal Exam Present: soft, normoactive bowel sounds. Absent: tenderness - Routine Extremities Exam Comments: Weakness in bilat lower extremities. Has contracture in hands. Results IRU - Labs Labs: Laboratory Results - last 24 hr 12/07/17 12/07/17 12/08/17 14:27 20:58 05:59 Glucometer 189 190 160 12/08/17 09:55 Glucometer 269 IRU A/P (1) Cervical spinal cord compression Current visit: Yes Status: Chronic Will continue with OT and PT to continue to get stronger. (2) Cervical myelopathy Current visit: Yes Status: Chronic (3) DM type 2 (diabetes mellitus, type 2) Qualifiers: Diabetes mellitus mcc insulin use: without termite control representative use Diabetes mellitus complication status: without complication Qualified Code(s): E11.9 - Type 2 diabetes mellitus without complications Current visit: Yes Status: Chronic Blood sugars have been a little high. Will monitor. Hospitalist is following. (4) Hypertension Qualifiers: Hypertension type: essential hypertension Qualified Code(s): I10 - Essential (primary) hypertension Current visit: Yes Status: Chronic (5) Myelopathy Current visit: Yes Status: Chronic (6) Obesity, Class III, BMI 40-49.9 (morbid obesity) Current visit: Yes Status: Chronic DVT Prophylaxis: SCD's Resuscitation Status: Full Code - Course Hospital Course: Ariel Mejia MD: - Interventions to Obtain Goals PT Treatment Plan: Balance/Proprioception, Functional Activities, Gait Training , Patient/Family Education, Therapeutic Exercise OT Treatment Plan: ADL (Basic Care), Balance Training, IADL, Pt./Family Education, Ther. Exercise for ADL
[2017-12-08] MEDS: LIDOCAINE PATCH REMOVAL TOP SCH (21:09)
[2017-12-09] MEDS: HYDROCODONE/APAP 7.5 MG/325 MG TABLET PO PRN ×4 (06:05→22:24)
--- NOTE | 2017-12-09 07:58 | IRU Progress Note ---
- Subjective/Serverity of Illness Date: 12/09/17 Patient says she is doing pretty well this morning. Pain is tolerable. Still has drain in her neck. Exam Vital Signs: Temperature 98.7 F 12/09/17 07:40 Pulse Rate 97 12/09/17 07:40 Respiratory Rate 16 12/09/17 07:40 Blood Pressure 151/71 H 12/09/17 07:40 Pulse Oximetry 93 12/09/17 07:40 Height/Weight/BMI: Height 1.57 m Weight 106.1 kg Body Mass Index 42.7 - Constitutional Present: no acute distress - Routine Respiratory Exam Present: CTA bilaterally - Routine Cardiovascular Exam Present: RRR, no murmur - Routine Abdominal Exam Present: soft, normoactive bowel sounds. Absent: tenderness - Routine Extremities Exam Comments: Weakness in upper and lower extremities and much more weakness in lower extremities. Results IRU - Labs Labs: Laboratory Results - last 24 hr 12/08/17 12/08/17 12/08/17 09:55 14:05 19:43 WBC RBC Hgb Hct MCV MCH MCHC RDW Std Deviation Plt Count MPV Immature Gran % (Auto) Neut % (Auto) Lymph % (Auto) [place] % (Auto) Eos % (Auto) Baso % (Auto) Neut # (Auto) Lymph # (Auto) [place] # (Auto) Eos # (Auto) Baso # (Auto) Abs Immat Gran (auto) Neutrophils % (Manual) Band Neutrophils % Lymphocytes % (Manual) Monocytes % (Manual) Eosinophils % (Manual) Metamyelocytes % Myelocytes % Neutrophils # (Manual) Band Neutrophils # Lymphocytes # (Manual) Monocytes # (Manual) Eosinophils # (Manual) Metamyelocytes # Myelocytes # RBC Morph Comment Turbidity Sodium Potassium Chloride Carbon Dioxide Anion Gap BUN Creatinine GFR Calculation BUN/Creatinine Ratio Glucose Glucometer 269 170 231 Calculated Osmolality Calcium Icterus Index Specimen Hemolysis 12/09/17 12/09/17 04:15 04:15 WBC 9.8 RBC 4.19 Hgb 12.5 Hct 38.2 MCV 91.2 MCH 29.8 MCHC 32.7 RDW Std Deviation 43.2 Plt Count 286 MPV 9.2 L Immature Gran % (Auto) Not performed Neut % (Auto) Not performed Lymph % (Auto) Not performed [place] % (Auto) Not performed Eos % (Auto) Not performed Baso % (Auto) Not performed Neut # (Auto) Not performed Lymph # (Auto) Not performed [place] # (Auto) Not performed Eos # (Auto) Not performed Baso # (Auto) Not performed Abs Immat Gran (auto) Not performed Neutrophils % (Manual) 58.0 Band Neutrophils % 3.0 Lymphocytes % (Manual) 17.0 L Monocytes % (Manual) 14.0 H Eosinophils % (Manual) 3.0 Metamyelocytes % 3.0 H Myelocytes % 2.0 H Neutrophils # (Manual) 5.7 Band Neutrophils # 0.3 Lymphocytes # (Manual) 1.7 Monocytes # (Manual) 1.4 H Eosinophils # (Manual) 0.3 Metamyelocytes # 0.3 Myelocytes # 0.2 RBC Morph Comment Normal Turbidity < 20 Sodium 144 Potassium 4.9 Chloride 107 Carbon Dioxide 31 H Anion Gap 6 BUN 11.0 Creatinine 0.5 L GFR Calculation 124 BUN/Creatinine Ratio 22 Glucose 168 H Glucometer Calculated Osmolality 280 Calcium 9.6 Icterus Index < 2 Specimen Hemolysis < 15 IRU A/P (1) Cervical spinal cord compression Current visit: Yes Status: Chronic Still has drain in her neck from surgery. Will have nurse check to see if we need to d/c the drain. (2) Cervical myelopathy Current visit: Yes Status: Chronic (3) DM type 2 (diabetes mellitus, type 2) Qualifiers: Diabetes mellitus middle or intermediate school principal insulin use: without fdc use Diabetes mellitus complication status: without complication Qualified Code(s): E11.9 - Type 2 diabetes mellitus without complications Current visit: Yes Status: Chronic (4) Hypertension Qualifiers: Hypertension type: essential hypertension Qualified Code(s): I10 - Essential (primary) hypertension Current visit: Yes Status: Chronic BP was a little high today but has been pretty good. (5) Myelopathy Current visit: Yes Status: Chronic Will continue to work with OT and PT. Is making steady progress. (6) Obesity, Class III, BMI 40-49.9 (morbid obesity) Current visit: Yes Status: Chronic DVT Prophylaxis: SCD's Resuscitation Status: Full Code - Course Hospital Course: Ariel Mejia MD: - Interventions to Obtain Goals PT Treatment Plan: Balance/Proprioception, Functional Activities, Gait Training , Patient/Family Education, Therapeutic Exercise OT Treatment Plan: ADL (Basic Care), Balance Training, IADL, Pt./Family Education, Ther. Exercise for ADL
[2017-12-09] MEDS: SITAGLIPTIN 100 MG TABLET PO SCH (08:17)
[2017-12-09] MEDS: CYANOCOBALAMIN (B-12) 500mcg TABLET PO SCH (08:19)
[2017-12-09] MEDS: ASCORBIC ACID 500 MG TABLET PO SCH (08:20)
[2017-12-09] MEDS: PRAVASTATIN 20 MG TABLET PO SCH (08:20)
[2017-12-09] MEDS: MULTI-VITAMIN PLAIN TABLET PO SCH (08:20)
[2017-12-09] MEDS: PANTOPRAZOLE 40 MG TABLET PO SCH (08:20)
[2017-12-09] MEDS: LOSARTAN 50 MG TABLET PO SCH (08:21)
[2017-12-09] MEDS: ASPIRIN 325 MG TABLET PO SCH (08:21)
[2017-12-09] MEDS: PREGABALIN 75 MG CAPSULE PO SCH (08:21)
[2017-12-09] MEDS: CITALOPRAM 20 MG TABLET PO SCH (08:22)
[2017-12-09] MEDS: CALCIUM 500 + VIT D 200 TABLET PO SCH ×2 (08:23→21:41)
[2017-12-09] MEDS: BACLOFEN 10 MG TABLET PO SCH ×4 (08:23→21:41)
[2017-12-09] MEDS: COENZYME Q-10 200mg TABLET PO SCH ×2 (08:23→21:41)
[2017-12-09] MEDS: MAGNESIUM OXIDE 400 MG TABLET PO SCH ×2 (08:24→21:41)
[2017-12-09] MEDS: SENNOSIDES 8.6 MG TABLET PO SCH ×2 (08:24→21:41)
[2017-12-09] MEDS: LIDOCAINE 5% PATCH TOP SCH (10:20)
[2017-12-09] MEDS: TRIAMCINOLONE 0.1% CREAM 15 G TUBE TOP SCH ×2 (10:20→21:41)
[2017-12-09] MEDS: DOCUSATE SODIUM 100 MG CAPSULE PO SCH ×2 (10:23→21:41)
[2017-12-09] MEDS: INSULIN ASPART 100unit/ml INJECTION SQ PRN (21:42)
[2017-12-09] MEDS: LIDOCAINE PATCH REMOVAL TOP SCH (21:42)
[2017-12-10] MEDS: INSULIN ASPART 100unit/ml INJECTION SQ PRN ×4 (06:25→20:38)
[2017-12-10] MEDS: HYDROCODONE/APAP 7.5 MG/325 MG TABLET PO PRN ×4 (06:25→20:37)
[2017-12-10] MEDS: COENZYME Q-10 200mg TABLET PO SCH ×2 (08:50→20:37)
[2017-12-10] MEDS: CITALOPRAM 20 MG TABLET PO SCH (08:50)
[2017-12-10] MEDS: SITAGLIPTIN 100 MG TABLET PO SCH (08:50)
[2017-12-10] MEDS: TRIAMCINOLONE 0.1% CREAM 15 G TUBE TOP SCH ×2 (08:50→20:35)
[2017-12-10] MEDS: LOSARTAN 50 MG TABLET PO SCH (08:50)
[2017-12-10] MEDS: SENNOSIDES 8.6 MG TABLET PO SCH ×2 (08:51→20:36)
[2017-12-10] MEDS: ASPIRIN 325 MG TABLET PO SCH (08:51)
[2017-12-10] MEDS: PANTOPRAZOLE 40 MG TABLET PO SCH (08:51)
[2017-12-10] MEDS: CYANOCOBALAMIN (B-12) 500mcg TABLET PO SCH (08:51)
[2017-12-10] MEDS: PREGABALIN 75 MG CAPSULE PO SCH (08:51)
[2017-12-10] MEDS: BACLOFEN 10 MG TABLET PO SCH ×4 (08:52→20:36)
[2017-12-10] MEDS: LIDOCAINE 5% PATCH TOP SCH (08:52)
[2017-12-10] MEDS: DOCUSATE SODIUM 100 MG CAPSULE PO SCH ×2 (08:52→20:36)
[2017-12-10] MEDS: MAGNESIUM OXIDE 400 MG TABLET PO SCH ×2 (08:52→20:36)
[2017-12-10] MEDS: CALCIUM 500 + VIT D 200 TABLET PO SCH ×2 (08:52→20:36)
[2017-12-10] MEDS: ASCORBIC ACID 500 MG TABLET PO SCH (08:52)
[2017-12-10] MEDS: PRAVASTATIN 20 MG TABLET PO SCH (08:52)
[2017-12-10] MEDS: MULTI-VITAMIN PLAIN TABLET PO SCH (08:52)
--- NOTE | 2017-12-10 15:35 | Progress Note ---
- Date 12/10/17 Subjective: Patient seen during therapy. She reports she is doing well other than the expected post-op neck pain. She is noting increased strength in her hands. Last BM 3-4 days ago. No CP, SOA, abd pain, n/v, f/c. Objective Vital signs: Temperature 99.5 F 12/10/17 08:00 Pulse Rate 94 12/10/17 08:00 Respiratory Rate 18 12/10/17 08:00 Blood Pressure 133/65 12/10/17 08:00 Pulse Oximetry 92 12/10/17 08:00 Height/Weight/BMI: Height 1.57 m Weight 106.1 kg Body Mass Index 42.7 - Constitutional Present: no acute distress, well nourished, well developed - Routine HEENT Exam Head: Present: normocephalic, atraumatic - Routine Respiratory Exam Present: CTA bilaterally. Absent: wheezes - Routine Cardiovascular Exam Present: RRR, no murmur - Routine Abdominal Exam Present: soft, non distended, non tender - Routine Extremities Exam Present: edema (tr), normal capillary refill - Routine Skin Exam Present: dry, warm Comments: op site on R anterior neck is healing with dermabond closure. Wound on lower cervical area posteriorly is covered with steristrips with no surrounding erythema or drainage. - Routine Neurological Exam Present: alert, oriented X3 - Routine Lymphatic Exam Lymphatic: Absent: adenopathy - Routine Psychiatric Exam Present: normal affect, cooperative Results - Labs CBC & Chem 7: 12/09/17 04:15 12/09/17 04:15 Assessment and Plan (1) Cervical myelopathy Current visit: Yes Status: Chronic Assessment and Plan: Assessment S/p anterior cervical discectomy and fusion and posterior laminectomy and fusion at C5-C7 spinal cord impingement (12/02/17-Dr. Colon) Extremity weakness secondary to cervical spine myelopathy HTN Type 2 diabetes mellitus, controlled (recent A1c 7.3) GERD Osteoarthritis Depression Morbid Obesity, BMI 42.8 Plan Remove hael in am. Vitals and labs are stable. BS's running 170's-240 - currently on sitagliptin and Bydureon. On sliding scale insulin. Attempted to contact Dr. Martinez to discuss opt of adding in metformin vs other agent. He is currently out of office until tomorrow afternoon. Will try again tomorrow to reach him. - Physician Narrative Narrative: Date: 12/10/17 Time: 1532 Hospital Course Summary Disclaimer: The visit summary below is not to be considered part of the above Progress Note. Hospital Course: 12/05/17 Agree with admission to IRU for pain control and further rehabilitation. Accu-Cheks. Continue home diabetes medications. If readings are consistently greater than 200 will start sliding scale insulin. Monitor blood pressures. Continue home losartan. Currently has Hale catheter. Once she is more mobile will discontinue. Pantoprazole for GERD and GI ppx. SCD's for DVT ppx. Care to return to Dr Martinez on dismissal. 12/10/17 Remove hale in am. Vitals and labs are stable. BS's running 170's-240 - currently on sitagliptin and Bydureon. On sliding scale. Attempted to contact Dr. Martinez to discuss opt of adding in metformin vs other agent. He is currently out of office until tomorrow afternoon. Will try again tomorrow to reach him.
[2017-12-10] MEDS: LIDOCAINE PATCH REMOVAL TOP SCH (21:00)
--- NOTE | 2017-12-10 21:38 | IRU Progress Note ---
- Subjective/Serverity of Illness Date: 12/10/17 Kristy was interviewed and examined in her room on inpatient rehabilitation. She is cooperative with therapy. She believes that her upper extremity strength and flexibility is improved. She is walking with total assistance of 1 person with a front-wheeled walker about 17 feet. She does report constipation. Her blood sugars are reviewed and remain a bit elevated. She reports a reduced appetite. Exam Vital Signs: Temperature 98.1 F 12/10/17 19:38 Pulse Rate 81 12/10/17 19:38 Respiratory Rate 18 12/10/17 19:38 Blood Pressure 130/68 12/10/17 19:38 Pulse Oximetry 96 12/10/17 19:38 Height/Weight/BMI: Height 1.57 m Weight 106.1 kg Body Mass Index 42.7 - Constitutional Present: no acute distress, well nourished, well developed, cooperative - Routine HEENT Exam Eye: Present: EOMI ENT: Present: mucous membranes moist - Routine Respiratory Exam Present: CTA bilaterally. Absent: wheezes - Routine Cardiovascular Exam Present: RRR, S1, S2. Absent: murmur - Routine Abdominal Exam Present: soft, normoactive bowel sounds, non distended. Absent: tenderness - Routine Extremities Exam Present: edema (trace to one +. She states it is better than at home. ), normal capillary refill - Routine Skin Exam Present: dry, warm - Routine Neurological Exam Present: alert, oriented X3, CN II-XII intact - Routine Psychiatric Exam Present: normal affect IRU A/P (1) Cervical myelopathy Current visit: Yes Status: Chronic Continues to demonstrate significant weakness although improving with therapy. Ambulating 17 feet with total assistance of 1 person. (2) DM type 2 (diabetes mellitus, type 2) Qualifiers: Diabetes mellitus residential insulin use: without termite exterminator use Diabetes mellitus complication status: without complication Qualified Code(s): E11.9 - Type 2 diabetes mellitus without complications Current visit: Yes Status: Chronic Blood sugars are running a bit high despite reduced appetite. (3) Hypertension Qualifiers: Hypertension type: essential hypertension Qualified Code(s): I10 - Essential (primary) hypertension Current visit: Yes Status: Chronic DVT Prophylaxis: SCD's Resuscitation Status: Full Code - Course Hospital Course: Ariel Mejia MD: 12/10/17 21:38 Patient is progressing with therapy. Blood sugars elevated. Constipated. - Interventions to Obtain Goals PT Treatment Plan: Balance/Proprioception, Functional Activities, Gait Training , Patient/Family Education, Therapeutic Exercise OT Treatment Plan: ADL (Basic Care), Balance Training, IADL, Pt./Family Education, Ther. Exercise for ADL
[2017-12-11] MEDS: INSULIN ASPART 100unit/ml INJECTION SQ PRN ×3 (06:32→21:41)
[2017-12-11] MEDS: HYDROCODONE/APAP 7.5 MG/325 MG TABLET PO PRN ×4 (06:33→21:39)
[2017-12-11] MEDS: COENZYME Q-10 200mg TABLET PO SCH ×2 (08:43→21:39)
[2017-12-11] MEDS: BACLOFEN 10 MG TABLET PO SCH ×4 (08:43→21:38)
[2017-12-11] MEDS: ASPIRIN 325 MG TABLET PO SCH (08:43)
[2017-12-11] MEDS: CALCIUM 500 + VIT D 200 TABLET PO SCH ×2 (08:43→21:38)
[2017-12-11] MEDS: SITAGLIPTIN 100 MG TABLET PO SCH (08:44)
[2017-12-11] MEDS: MAGNESIUM OXIDE 400 MG TABLET PO SCH ×2 (08:44→21:39)
[2017-12-11] MEDS: MULTI-VITAMIN PLAIN TABLET PO SCH (08:44)
[2017-12-11] MEDS: PANTOPRAZOLE 40 MG TABLET PO SCH (08:44)
[2017-12-11] MEDS: SENNOSIDES 8.6 MG TABLET PO SCH ×2 (08:44→21:38)
[2017-12-11] MEDS: CITALOPRAM 20 MG TABLET PO SCH (08:44)
[2017-12-11] MEDS: DOCUSATE SODIUM 100 MG CAPSULE PO SCH ×2 (08:45→21:38)
[2017-12-11] MEDS: PRAVASTATIN 20 MG TABLET PO SCH (08:45)
[2017-12-11] MEDS: CYANOCOBALAMIN (B-12) 500mcg TABLET PO SCH (08:45)
[2017-12-11] MEDS: LIDOCAINE 5% PATCH TOP SCH (08:46)
[2017-12-11] MEDS: PREGABALIN 75 MG CAPSULE PO SCH (08:50)
[2017-12-11] MEDS: ASCORBIC ACID 500 MG TABLET PO SCH (08:57)
[2017-12-11] MEDS: LOSARTAN 50 MG TABLET PO SCH (08:57)
--- NOTE | 2017-12-11 10:37 | IRU Progress Note ---
- Subjective/Serverity of Illness Date: 12/11/17 Ms. Banueols was interviewed and examined in her room on inpatient rehabilitation. She continues to struggle with some constipation. She is on some bowel management strategies. Appetite remains somewhat suppressed she states. She has had no nausea no vomiting. I reviewed her blood sugars and discussed this with her. She is on Bydureon and oral agents at home. Her A1c has been fairly good otherwise of 7.3-7.4. However blood sugars here been a bit elevated. I suggested they could be due to the additional stress and pain involved in the current situation. She is on no insulin at present. We will continue to monitor with the hospitalist service. From a functional standpoint she certainly is improving. Occupational therapy indicates that she is requiring only minimal assistance for bathing and upper body dressing. She requires moderate assistance for lower body dressing. Toileting is with moderate assistance. For physical therapy she is transferring with contact guard assistance. She is able to ambulate 17 feet with total assistance to contact-guard assistance. This is with a front-wheeled walker. She is improving. Exam Vital Signs: Temperature 98.8 F 12/11/17 07:53 Pulse Rate 91 12/11/17 07:53 Respiratory Rate 16 12/11/17 07:53 Blood Pressure 143/75 H 12/11/17 07:53 Pulse Oximetry 94 12/11/17 07:53 Height/Weight/BMI: Height 1.57 m Weight 106.1 kg Body Mass Index 42.7 - Constitutional Present: no acute distress, well nourished, well developed, cooperative - Routine HEENT Exam Eye: Present: EOMI ENT: Present: mucous membranes moist, oropharynx clear - Routine Respiratory Exam Present: CTA bilaterally. Absent: wheezes - Routine Cardiovascular Exam Present: RRR, S1, S2. Absent: murmur - Routine Abdominal Exam Present: soft, normoactive bowel sounds, non distended. Absent: tenderness - Routine Extremities Exam Present: edema (improved from home), normal capillary refill - Routine Skin Exam Present: dry, warm - Routine Neurological Exam Present: alert, oriented X3, CN II-XII intact - Routine Psychiatric Exam Present: normal affect, cooperative, good insight, good judgment Results IRU - Labs Labs: Have reviewed chart data and other providers notes. IRU A/P (1) Cervical myelopathy Current visit: Yes Status: Chronic Her for extremity weakness continues to improve. In particular she notes improvement in hand functionality. I discussed with occupational therapy also indicates that the tendons and ligaments are quite tight in the hands and this is improving. She requires continued work on pulling up her lower extremity dressing. Ambulatory ability is slowly improving as well. (2) DM type 2 (diabetes mellitus, type 2) Qualifiers: Diabetes mellitus oil heaterman insulin use: without jail use Diabetes mellitus complication status: without complication Qualified Code(s): E11.9 - Type 2 diabetes mellitus without complications Current visit: Yes Status: Chronic Blood sugars remain elevated for uncertain reasons. She is on oral agents plus Bydureon at home. (3) Hypertension Qualifiers: Hypertension type: essential hypertension Qualified Code(s): I10 - Essential (primary) hypertension Current visit: Yes Status: Chronic DVT Prophylaxis: SCD's Resuscitation Status: Full Code - Course Hospital Course: Ariel Mejia MD: 12/10/17 21:38 Patient is progressing with therapy. Blood sugars elevated. Constipated. 12/11/17 10:37 Blood sugars remain a bit elevated. Continues to struggle with constipation. She is doing well with therapy and making good progress. - Interventions to Obtain Goals PT Treatment Plan: Balance/Proprioception, Functional Activities, Gait Training , Patient/Family Education, Therapeutic Exercise OT Treatment Plan: ADL (Basic Care), Balance Training, IADL, Pt./Family Education, Ther. Exercise for ADL Goals Progress/Modifications: Discussed with patient her home situation. Her is quite ill at the present time. He provide some assistance in terms of cooking. However the patient is to be fairly independent prior to going home. Multidisciplinary approach team meeting today we'll discuss these options. She is improving with both PT and OT. Her for extremity weakness is improving. She does struggle with reduced appetite and her blood sugars are elevated. We will monitor this and may need to adjust her medications in this regard if this continues. She is not on any cortisone steroids at present which might elevate the sugars.
--- NOTE | 2017-12-11 14:10 | IRU Team Meeting ---
IRU Team Meeting - Nursing Bladder Assistive Devices Utilized:: Catheter Bladder Management Level of Assist: Total Assistance Bladder Frequency of Accidents: No accidents Bowel Assistive Devices Utilized:: Medication, Absorbent Pad Bowel Management Level of Assist: Modified Independent Bowel Frequency of Accidents: No accidents Vital Signs: Vital Signs - 24 hr 12/10/17 15:40 12/10/17 19:38 12/11/17 07:53 Temperature 98.5 F 98.1 F 98.8 F Pulse Rate 85 81 91 Respiratory Rate 18 18 16 Blood Pressure 126/65 130/68 143/75 H Pulse Oximetry 94 96 94 Current Medications: Acetaminophen (Tylenol) 500 mg PO Q4HR PRN PRN Reason: Pain Hydrocodone Bitart/Acetaminophen ([place] 7.5/325) 1 - 2 tab PO Q4HR PRN PRN Reason: Pain Last Admin: 12/11/17 11:56 Dose: 2 tab Alendronate Sodium (Fosamax 70 Mg) 70 mg PO Q7D [facility] Last Admin: 12/05/17 06:03 Dose: 70 mg Ascorbic Acid (Vitamin C) 250 mg PO DAILY [facility] Last Admin: 12/11/17 08:57 Dose: 250 mg Aspirin (Asa) 325 mg PO DAILY [facility] Last Admin: 12/11/17 08:43 Dose: 325 mg Baclofen (Lioresal) 10 mg PO QID [facility] Last Admin: 12/11/17 08:43 Dose: 10 mg Calcium/Vitamin D ([place]-D 500) 1 tab PO BID [facility] Last Admin: 12/11/17 08:43 Dose: 1 tab Cholecalciferol (Vit. D-3) 1,000 unit PO DAILY [facility] Last Admin: 12/11/17 08:44 Dose: 1,000 unit Citalopram Hydrobromide (Celexa) 20 mg PO DAILY [facility] Last Admin: 12/11/17 08:44 Dose: 20 mg Coenzyme Q10 (Co Q-10) 200 mg PO Q12HR [facility] Last Admin: 12/11/17 08:43 Dose: 200 mg Cyanocobalamin (Vit. B-12) 1,000 mcg PO DAILY [facility] Last Admin: 12/11/17 08:45 Dose: 1,000 mcg Docusate Sodium (Colace) 100 mg PO BID [facility] Last Admin: 12/11/17 08:45 Dose: 100 mg Exenatide (Bydureon) 2 mg SQ Q7D [facility] Last Admin: 12/05/17 10:18 Dose: 2 mg Insulin Aspart (Novolog) 1 - 5 unit SQ SS PRN; Protocol PRN Reason: Hyperglycemia Last Admin: 12/11/17 11:58 Dose: 2 unit Lidocaine (Lidoderm) 1 patch TOP DAILY [facility] Last Admin: 12/11/17 08:46 Dose: 1 patch Lidocaine HCl/Dextrose (Lidoderm Patch Removal) 1 removal TOP 2100 [facility] Last Admin: 12/10/17 21:00 Dose: 1 removal Lorazepam (Ativan) 0.5 mg PO Q4HR PRN PRN Reason: Anxiety Losartan Potassium (Cozaar) 25 mg PO DAILY [facility] Last Admin: 12/11/17 08:57 Dose: 25 mg Magnesium Hydroxide (Mom) 30 ml PO DAILY PRN PRN Reason: Constipation /Stool softening Last Admin: 12/10/17 20:38 Dose: 30 ml Magnesium Oxide (Magox) 400 mg PO BID [facility] Last Admin: 12/11/17 08:44 Dose: 400 mg Meloxicam (Mobic) 7.5 mg PO DAILY PRN PRN Reason: Pain Metoclopramide HCl (Reglan) 10 mg PO Q6HR PRN PRN Reason: Nausea Multivitamins (Theragran) 1 tab PO DAILY [facility] Last Admin: 12/11/17 08:44 Dose: 1 tab Ondansetron HCl (Zofran Odt Tablet) 4 mg PO Q6H PRN PRN Reason: Nausea &/or vomiting Last Admin: 12/06/17 10:58 Dose: 4 mg Pantoprazole Sodium (Protonix Tab) 40 mg PO DAILY [facility] Last Admin: 12/11/17 08:44 Dose: 40 mg Pravastatin Sodium (Pravachol) 20 mg PO DAILY [facility] Last Admin: 12/11/17 08:45 Dose: 20 mg Pregabalin (Lyrica) 75 mg PO DAILY [facility] Last Admin: 12/11/17 08:50 Dose: 75 mg Senna (Senna Lax) 8.6 mg PO BID [facility] Last Admin: 12/11/17 08:44 Dose: 8.6 mg Sitagliptin Phosphate (Januvia) 100 mg PO DAILY [facility] Last Admin: 12/11/17 08:44 Dose: 100 mg Temazepam (Restoril) 15 mg PO HS PRN PRN Reason: insomina Throat Lozenges (Chloraseptic Jackson) 1 spray PO DAILY PRN PRN Reason: Pain Triamcinolone Acetonide (Kenalog) 1 applic TOP BID [facility] Last Admin: 12/10/17 20:35 Dose: 1 applic Current Medical Issues: Cervical myelopathy with for extremity weakness, constipation, diabetes mellitus type 2 Comments: I certify that I personally led the interdisciplinary team meeting and agree with comments, barriers and goals indicated. Team meeting was held in the patient's room with the patient and the following family members present: patient alone Kristy is progressing with therapy. Her appetite is reasonable although not excessive. Her blood sugars have been a bit elevated. She does have constipation. Four extremity weakness continues to be addressed with therapy as well as nursing. - Physical Therapy Bed, Chair, Wheelchair Transfer Assist: Contact Guard Assistance Ambulation Ability: Total Assistance Ambulation Distance: 22 Wheelchair Propulsion Ability: Total Assistance Wheelchair Propulsion Distance: 50 Stair Climbing Ability: Stand By Assist/Supervision, Household Exception Number of Steps Climbed: 75 Car Transfer Ability: Patient Unsafe/Unable Comments: Patient is continuing to improve with regard to functional mobility. There is evidence of decreased endurance and lack of confidence. Able to ambulate with total assistance 22 feet. - Occupational Therapy Eating Ability: Independent Grooming Ability: Independent Bathing Ability: Stand By Assist/Supervision Upper Body Dressing Ability: Stand By Assist/Supervision Lower Body Dressing Ability: Moderate Assistance Tub Transfer Assist: Patient Refuses Toileting Assist: Stand By Assist/Supervision Toilet Transfer Assist: Stand By Assist/Supervision Comments: She continues to progress with ADL performance. Improved functional use of both hands noted but particularly working on pulling up lower extremity dressing. - Goals Physical Therapy Goals: 12/11/17 Goals: 1.) Modified independence with all transfers. 2.) Consistently walk at least 30 feet with front wheeled walker. 3.) Demostrate independence with home exercise program. Occupational Therapy Goals: OT goals 12/11/17: 1.) Lower body dressing w/ min assist. 2.) Toilet transfer with modified independence. 3.) Fitting for resting hand splint to reduce risk of joint contractures. - Barriers to Discharge Barriers to Attaining Goals: Weakness (patient has reduced strength secondary to her cervical myelopathy. To address this, progressive resistive exercises are undertaken.), Balance (to address balance, balance and proprioceptive exercises are undertaken.) - Care Plan Anticipated Length of Stay (days): 7 Anticipated DC Destination: Home, Self Care, Home Health Service I have led this team conference and agree with the plan. Interventions/Goals: Patient has progressed with regard to functional activities. It is anticipated that she will be stable for transfer to her home environment in approximately 7 days based on her current trajectory.
[2017-12-11] MEDS: TRIAMCINOLONE 0.1% CREAM 15 G TUBE TOP SCH ×2 (15:21→21:45)
[2017-12-11] MEDS: LIDOCAINE PATCH REMOVAL TOP SCH ×2 (21:44→22:00)
[2017-12-12] MEDS: HYDROCODONE/APAP 7.5 MG/325 MG TABLET PO PRN ×4 (06:24→21:31)
[2017-12-12] MEDS: ALENDRONATE 70 MG TABLET PO SCH (06:26)
[2017-12-12] MEDS: INSULIN ASPART 100unit/ml INJECTION SQ PRN ×3 (06:42→11:04)
[2017-12-12] MEDS: LOSARTAN 50 MG TABLET PO SCH (08:28)
[2017-12-12] MEDS: CALCIUM 500 + VIT D 200 TABLET PO SCH ×2 (08:28→21:29)
[2017-12-12] MEDS: ASPIRIN 325 MG TABLET PO SCH (08:28)
[2017-12-12] MEDS: MULTI-VITAMIN PLAIN TABLET PO SCH (08:28)
[2017-12-12] MEDS: MAGNESIUM OXIDE 400 MG TABLET PO SCH ×2 (08:29→21:29)
[2017-12-12] MEDS: CYANOCOBALAMIN (B-12) 500mcg TABLET PO SCH (08:29)
[2017-12-12] MEDS: PRAVASTATIN 20 MG TABLET PO SCH (08:29)
[2017-12-12] MEDS: COENZYME Q-10 200mg TABLET PO SCH ×2 (08:29→21:29)
[2017-12-12] MEDS: CITALOPRAM 20 MG TABLET PO SCH (08:29)
[2017-12-12] MEDS: DOCUSATE SODIUM 100 MG CAPSULE PO SCH ×2 (08:29→21:30)
[2017-12-12] MEDS: BACLOFEN 10 MG TABLET PO SCH ×4 (08:30→21:29)
[2017-12-12] MEDS: PREGABALIN 75 MG CAPSULE PO SCH (08:30)
[2017-12-12] MEDS: SITAGLIPTIN 100 MG TABLET PO SCH (08:30)
[2017-12-12] MEDS: SENNOSIDES 8.6 MG TABLET PO SCH ×2 (08:30→21:30)
[2017-12-12] MEDS: PANTOPRAZOLE 40 MG TABLET PO SCH (08:36)
[2017-12-12] MEDS: ASCORBIC ACID 500 MG TABLET PO SCH (08:36)
[2017-12-12] MEDS: LIDOCAINE 5% PATCH TOP SCH (10:04)
[2017-12-12] MEDS: TRIAMCINOLONE 0.1% CREAM 15 G TUBE TOP SCH ×2 (10:05→21:31)
--- NOTE | 2017-12-12 10:48 | IRU Progress Note ---
- Subjective/Serverity of Illness Date: 12/12/17 Kristy was interviewed in her room on inpatient rehabilitation. She is progressing with therapy particularly with regard to hand dexterity. The left ankle continues to be worse than the right however. She has reduced fine motor movement in the left hand chronically. However she is able to do more in terms of grooming, brushing teeth etc. She has had a bowel movement. Edema is about the same and continues to be improved from her baseline at home. Blood sugars are reviewed and continued to be elevated. Exam Vital Signs: Temperature 98.1 F 12/12/17 07:31 Pulse Rate 85 12/12/17 07:31 Respiratory Rate 18 12/12/17 07:31 Blood Pressure 136/67 12/12/17 07:31 Pulse Oximetry 90 12/12/17 07:31 Height/Weight/BMI: Height 1.57 m Weight 106.1 kg Body Mass Index 42.7 - Constitutional Present: no acute distress, well nourished, well developed - Routine HEENT Exam Eye: Present: EOMI ENT: Present: mucous membranes moist, dentition normal - Routine Respiratory Exam Present: CTA bilaterally. Absent: wheezes - Routine Cardiovascular Exam Present: RRR. Absent: murmur - Routine Abdominal Exam Present: soft, normoactive bowel sounds, non distended. Absent: tenderness - Routine Extremities Exam Present: normal capillary refill - Routine Skin Exam Present: dry, warm - Routine Neurological Exam Present: alert, oriented X3, CN II-XII intact Claw deformity/flexion contractures of left hand noted. - Routine Psychiatric Exam Present: normal affect Results IRU - Labs Labs: Reviewed chart data including labs and blood sugars. IRU A/P (1) Cervical myelopathy Current visit: Yes Status: Chronic Motor strength slowly improving. Cooperative with therapy and making progress. (2) DM type 2 (diabetes mellitus, type 2) Qualifiers: Diabetes mellitus terminal system operator insulin use: without detention use Diabetes mellitus complication status: without complication Qualified Code(s): E11.9 - Type 2 diabetes mellitus without complications Current visit: Yes Status: Chronic Blood sugars continue to be a bit elevated. (3) Hypertension Qualifiers: Hypertension type: essential hypertension Qualified Code(s): I10 - Essential (primary) hypertension Current visit: Yes Status: Chronic DVT Prophylaxis: SCD's Resuscitation Status: Full Code - Course Hospital Course: Ariel Mejia MD: 12/10/17 21:38 Patient is progressing with therapy. Blood sugars elevated. Constipated. 12/11/17 10:37 Blood sugars remain a bit elevated. Continues to struggle with constipation. She is doing well with therapy and making good progress. 12/12/17 10:47 Progressing with therapy. Had a bowel movement. - Interventions to Obtain Goals PT Treatment Plan: Balance/Proprioception, Functional Activities, Gait Training , Patient/Family Education, Therapeutic Exercise OT Treatment Plan: ADL (Basic Care), Balance Training, IADL, Pt./Family Education, Ther. Exercise for ADL
[2017-12-12] MEDS: EXENATIDE 2 MG SQ SCH (11:04)
[2017-12-12] MEDS: LIDOCAINE PATCH REMOVAL TOP SCH (21:30)
[2017-12-13] MEDS: PANTOPRAZOLE 40 MG TABLET PO SCH (08:49)
[2017-12-13] MEDS: PREGABALIN 75 MG CAPSULE PO SCH (08:49)
[2017-12-13] MEDS: COENZYME Q-10 200mg TABLET PO SCH ×2 (08:49→22:16)
[2017-12-13] MEDS: ASPIRIN 325 MG TABLET PO SCH (08:50)
[2017-12-13] MEDS: DOCUSATE SODIUM 100 MG CAPSULE PO SCH ×2 (08:50→22:16)
[2017-12-13] MEDS: MAGNESIUM OXIDE 400 MG TABLET PO SCH ×2 (08:51→22:17)
[2017-12-13] MEDS: LOSARTAN 50 MG TABLET PO SCH (08:51)
[2017-12-13] MEDS: HYDROCODONE/APAP 7.5 MG/325 MG TABLET PO PRN ×3 (08:51→22:16)
[2017-12-13] MEDS: BACLOFEN 10 MG TABLET PO SCH ×4 (08:51→22:16)
[2017-12-13] MEDS: PRAVASTATIN 20 MG TABLET PO SCH (08:51)
[2017-12-13] MEDS: SENNOSIDES 8.6 MG TABLET PO SCH ×2 (08:51→22:16)
[2017-12-13] MEDS: MULTI-VITAMIN PLAIN TABLET PO SCH (08:51)
[2017-12-13] MEDS: CITALOPRAM 20 MG TABLET PO SCH (08:53)
[2017-12-13] MEDS: SITAGLIPTIN 100 MG TABLET PO SCH (08:53)
[2017-12-13] MEDS: CALCIUM 500 + VIT D 200 TABLET PO SCH ×2 (08:53→22:17)
[2017-12-13] MEDS: CYANOCOBALAMIN (B-12) 500mcg TABLET PO SCH (08:53)
[2017-12-13] MEDS: LIDOCAINE 5% PATCH TOP SCH (10:31)
[2017-12-13] MEDS: INSULIN ASPART 100unit/ml INJECTION SQ PRN (10:32)
[2017-12-13] MEDS: TRIAMCINOLONE 0.1% CREAM 15 G TUBE TOP SCH ×2 (10:33→22:16)
[2017-12-13] MEDS: ASCORBIC ACID 500 MG TABLET PO SCH (10:33)
[2017-12-13] MEDS: LIDOCAINE PATCH REMOVAL TOP SCH (22:17)
[2017-12-14] MEDS: HYDROCODONE/APAP 7.5 MG/325 MG TABLET PO PRN ×3 (08:56→21:05)
[2017-12-14] MEDS: PRAVASTATIN 20 MG TABLET PO SCH (08:57)
[2017-12-14] MEDS: PREGABALIN 75 MG CAPSULE PO SCH (08:58)
[2017-12-14] MEDS: ASCORBIC ACID 500 MG TABLET PO SCH (08:58)
[2017-12-14] MEDS: MULTI-VITAMIN PLAIN TABLET PO SCH (08:58)
[2017-12-14] MEDS: SITAGLIPTIN 100 MG TABLET PO SCH (08:59)
[2017-12-14] MEDS: PANTOPRAZOLE 40 MG TABLET PO SCH (08:59)
[2017-12-14] MEDS: CITALOPRAM 20 MG TABLET PO SCH (08:59)
[2017-12-14] MEDS: CYANOCOBALAMIN (B-12) 500mcg TABLET PO SCH (08:59)
[2017-12-14] MEDS: ASPIRIN 325 MG TABLET PO SCH (08:59)
[2017-12-14] MEDS: DOCUSATE SODIUM 100 MG CAPSULE PO SCH ×2 (09:00→21:04)
[2017-12-14] MEDS: LOSARTAN 50 MG TABLET PO SCH (09:00)
[2017-12-14] MEDS: CALCIUM 500 + VIT D 200 TABLET PO SCH ×2 (09:00→21:04)
[2017-12-14] MEDS: COENZYME Q-10 200mg TABLET PO SCH ×2 (09:00→21:04)
[2017-12-14] MEDS: BACLOFEN 10 MG TABLET PO SCH ×4 (09:00→21:04)
[2017-12-14] MEDS: MAGNESIUM OXIDE 400 MG TABLET PO SCH ×2 (09:00→21:04)
[2017-12-14] MEDS: SENNOSIDES 8.6 MG TABLET PO SCH ×2 (09:01→21:18)
[2017-12-14] MEDS: TRIAMCINOLONE 0.1% CREAM 15 G TUBE TOP SCH ×2 (10:04→21:21)
[2017-12-14] MEDS: LIDOCAINE 5% PATCH TOP SCH (10:05)
[2017-12-14] MEDS: INSULIN ASPART 100unit/ml INJECTION SQ PRN ×2 (12:47→21:18)
--- NOTE | 2017-12-14 14:42 | Progress Note ---
- Date 12/14/17 Subjective: Kristy is seen today while sitting in her chair, reading. She reports that she is doing well. She admits to some generalized pain across her shoulder and neck but states that it is similar to her chronic pain. Collar in place. She denies any other concerns or complaints. No chest pain, shortness of breath, abdominal pain, nausea, vomiting. Her appetite is stable and bowels are moving. Plan to discharge home on 12/18/17. Objective Vital signs: Temperature 98.3 F 12/14/17 08:00 Pulse Rate 86 12/14/17 08:00 Respiratory Rate 18 12/14/17 08:00 Blood Pressure 144/66 H 12/14/17 08:00 Pulse Oximetry 96 12/14/17 08:00 Height/Weight/BMI: Height 5 ft 2 in Weight 226 lb 3.108 oz Body Mass Index 42.7 Comments: Sitting in her chair, reading. Collar in place. - Constitutional Present: no acute distress, well nourished, well developed, morbidly obese, cooperative - Routine HEENT Exam Head: Present: normocephalic, atraumatic Eye: Present: PERRL. Absent: conjunctival icterus ENT: Present: mucous membranes moist, oropharynx clear - Routine Respiratory Exam Present: decreased breath sounds. Absent: respiratory distress, wheezes Comments: No cough or respiratory distress. - Routine Cardiovascular Exam Present: RRR, S1, S2 - Routine Abdominal Exam Present: soft, normoactive bowel sounds, non tender - Routine Extremities Exam Present: edema, non tender, pulses intact - Routine Back/Spine/Pelvis Exam Back/Spine: Absent: CVA tenderness Comments: Collar in place. - Routine Musculoskeletal Exam Musculoskeletal: Present: no clubbing or cyanosis, moving extremities well - Routine Skin Exam Present: intact, dry, warm Comments: afebrile. - Routine Neurological Exam Present: alert, oriented X3, moving all extremities, hearing grossly intact, normal speech - Routine Psychiatric Exam Present: cooperative Results - Labs CBC & Chem 7: 12/09/17 04:15 12/09/17 04:15 Assessment and Plan (1) Cervical myelopathy Current visit: Yes Status: Chronic Assessment and Plan: Assessment S/p anterior cervical discectomy and fusion and posterior laminectomy and fusion at C5-C7 spinal cord impingement (12/02/17-Dr. Colon) Extremity weakness secondary to cervical spine myelopathy HTN Type 2 diabetes mellitus, controlled (recent A1c 7.3) GERD Osteoarthritis Depression Morbid Obesity, BMI 42.8 Plan Overall, doing well medically. Anticipate discharge home on 12/18. Continue therapies and treatment plan per Dr. Mejia. Continue to monitor blood sugars closely - variable. Encourage patient to follow up with Dr. Martinez as outpatient to discuss additional treatments for improved control. Recheck labs in AM to monitor blood counts, electrolytes and renal function. DVT Prophylaxis: SCD's Resuscitation Status: Full Code - Time spent with patient Time with patient PN: 25 minutes - Physician Narrative Physician: Dilip Alfred MD Narrative: Date: 12/14/17 Time: 1439 Hospital Course Summary Disclaimer: The visit summary below is not to be considered part of the above Progress Note. Hospital Course: 12/05/17 Agree with admission to IRU for pain control and further rehabilitation. Accu-Cheks. Continue home diabetes medications. If readings are consistently greater than 200 will start sliding scale insulin. Monitor blood pressures. Continue home losartan. Currently has Hale catheter. Once she is more mobile will discontinue. Pantoprazole for GERD and GI ppx. SCD's for DVT ppx. Care to return to Dr Martinez on dismissal. 12/10/17 Remove hale in am. Vitals and labs are stable. BS's running 170's-240 - currently on sitagliptin and Bydureon. On sliding scale. Attempted to contact Dr. Martinez to discuss opt of adding in metformin vs other agent. He is currently out of office until tomorrow afternoon. Will try again tomorrow to reach him. 12/14/17 Overall, doing well medically. Anticipate discharge home on 12/18. Continue therapies and treatment plan per Dr. Mejia. Continue to monitor blood sugars closely - variable. Encourage patient to follow up with Dr. Martinez as outpatient to discuss additional treatments for improved control. Recheck labs in AM to monitor blood counts, electrolytes and renal function.
[2017-12-14] MEDS: LIDOCAINE PATCH REMOVAL TOP SCH (21:19)
[2017-12-15] MEDS: HYDROCODONE/APAP 7.5 MG/325 MG TABLET PO PRN ×3 (08:54→21:47)
[2017-12-15] MEDS: PANTOPRAZOLE 40 MG TABLET PO SCH (08:55)
[2017-12-15] MEDS: LIDOCAINE 5% PATCH TOP SCH (08:55)
[2017-12-15] MEDS: TRIAMCINOLONE 0.1% CREAM 15 G TUBE TOP SCH ×2 (08:55→21:47)
[2017-12-15] MEDS: PRAVASTATIN 20 MG TABLET PO SCH (08:56)
[2017-12-15] MEDS: ASPIRIN 325 MG TABLET PO SCH (08:56)
[2017-12-15] MEDS: MAGNESIUM OXIDE 400 MG TABLET PO SCH ×2 (08:56→21:46)
[2017-12-15] MEDS: CYANOCOBALAMIN (B-12) 500mcg TABLET PO SCH (08:56)
[2017-12-15] MEDS: SITAGLIPTIN 100 MG TABLET PO SCH (08:56)
[2017-12-15] MEDS: BACLOFEN 10 MG TABLET PO SCH ×4 (08:56→21:45)
[2017-12-15] MEDS: PREGABALIN 75 MG CAPSULE PO SCH (08:56)
[2017-12-15] MEDS: ASCORBIC ACID 500 MG TABLET PO SCH (08:56)
[2017-12-15] MEDS: COENZYME Q-10 200mg TABLET PO SCH ×2 (08:56→21:45)
[2017-12-15] MEDS: CALCIUM 500 + VIT D 200 TABLET PO SCH ×2 (08:57→21:45)
[2017-12-15] MEDS: CITALOPRAM 20 MG TABLET PO SCH (08:57)
[2017-12-15] MEDS: LOSARTAN 50 MG TABLET PO SCH (08:57)
[2017-12-15] MEDS: DOCUSATE SODIUM 100 MG CAPSULE PO SCH ×2 (08:57→21:45)
[2017-12-15] MEDS: MULTI-VITAMIN PLAIN TABLET PO SCH (08:57)
[2017-12-15] MEDS: SENNOSIDES 8.6 MG TABLET PO SCH ×2 (09:01→21:46)
--- NOTE | 2017-12-15 11:00 | IRU Progress Note ---
- Subjective/Serverity of Illness Date: 12/15/17 Kristy was reassessed in her room on inpatient rehabilitation. She reports that she does have wound related neck discomfort which is adequately relieved by the pain medication. She feels as though she is progressing from a functional standpoint. Her bowels appear to be moving adequately. She would prefer not to have to measure her output. I discussed with nursing and this will be discontinued. Catheter was removed last week. She remains afebrile. Her blood sugars are reviewed and are improving. Typically they're less than 200. She is on Bydureon and oral agents. Appetite remains good. From a therapy standpoint, she is bathing with minimum assistance. Upper body dressing is now independent with lower body dressing requires contact-guard assistance. Toileting is with moderate assistance. She is able to transfer with standby assistance for physical therapy. She is able to ambulate about 17 feet with total assistance with a front-wheeled walker. She does have a mom with Dr. Colon on and therefore likely will plan for a successful transition to her home environment on Friday. Exam Vital Signs: Temperature 98.3 F 12/15/17 08:00 Pulse Rate 79 12/15/17 08:00 Respiratory Rate 16 12/15/17 08:00 Blood Pressure 127/69 12/15/17 08:00 Pulse Oximetry 93 12/15/17 08:00 Height/Weight/BMI: Height 1.57 m Weight 102.6 kg Body Mass Index 42.7 - Constitutional Present: mild distress (neck pain), well nourished, well developed, morbidly obese, cooperative - Routine HEENT Exam Eye: Present: EOMI ENT: Present: mucous membranes moist, dentition normal - Routine Respiratory Exam Present: CTA bilaterally. Absent: wheezes - Routine Cardiovascular Exam Present: RRR, S1, S2. Absent: murmur - Routine Abdominal Exam Present: soft, normoactive bowel sounds, non distended. Absent: tenderness - Routine Extremities Exam Present: normal capillary refill - Routine Skin Exam Present: dry, warm - Routine Neurological Exam Present: alert, oriented X3, CN II-XII intact - Routine Psychiatric Exam Present: normal affect Results IRU - Labs Labs: I reviewed other providers notes as well as blood sugars and other laboratory findings. IRU A/P (1) Cervical myelopathy Current visit: Yes Status: Chronic For extremity weakness continues to improve from a functional standpoint. Able to do more with her hands and fingers. Has some chronic deformities however. In addition she states that her legs feel less like "wooden stumps" and are more functional. (2) DM type 2 (diabetes mellitus, type 2) Qualifiers: Diabetes mellitus oysterman insulin use: without custodial use Diabetes mellitus complication status: without complication Qualified Code(s): E11.9 - Type 2 diabetes mellitus without complications Current visit: Yes Status: Chronic Blood sugars are improved. Continued to run a bit elevated but are certainly better than they were last week. (3) Hypertension Qualifiers: Hypertension type: essential hypertension Qualified Code(s): I10 - Essential (primary) hypertension Current visit: Yes Status: Chronic DVT Prophylaxis: SCD's Resuscitation Status: Full Code - Course Hospital Course: Ariel Mejia MD: 12/10/17 21:38 Patient is progressing with therapy. Blood sugars elevated. Constipated. 12/11/17 10:37 Blood sugars remain a bit elevated. Continues to struggle with constipation. She is doing well with therapy and making good progress. 12/12/17 10:47 Progressing with therapy. Had a bowel movement. 12/15/17 10:59 Blood sugars are improved. She is improving with therapy. Anticipate dismissal on Friday. - Interventions to Obtain Goals PT Treatment Plan: Balance/Proprioception, Functional Activities, Gait Training , Patient/Family Education, Therapeutic Exercise OT Treatment Plan: ADL (Basic Care), Balance Training, IADL, Pt./Family Education, Ther. Exercise for ADL Goals Progress/Modifications: Kristy is doing reasonably well with therapy. Ambulatory distance is limited. I will discuss with the therapists as to whether she needs family training prior to her dismissal home. She has appointment on with Dr. Colon. It is likely that we will dismiss her on Friday. Patient states that she feels like she is safe to return home. Has several medical issues including the pain in the neck, the blood sugars and blood pressures. Overall these are reasonably well controlled at present and her blood sugars are improving. She will need to continue limit intake and if her sugars do not come down she may need long- acting insulin. We'll not add that at present however.
[2017-12-15] MEDS: INSULIN ASPART 100unit/ml INJECTION SQ PRN ×2 (11:07→21:51)
--- NOTE | 2017-12-15 15:06 | Progress Note ---
Progress Note: Kristy displays a tenodesis grasp, resulting in flexion of the fingers of the left hand. This is limiting her ability to use the left hand, particularly with pulling up clothes from the lower part of the body. She requires a resting hand orthosis to address this. She has flexion deformities of the fingers of left hand as well as flexure deformity of the left wrist.
[2017-12-15] MEDS: LIDOCAINE PATCH REMOVAL TOP SCH (21:45)
[2017-12-16] MEDS: INSULIN ASPART 100unit/ml INJECTION SQ PRN ×3 (06:01→22:07)
[2017-12-16] MEDS: HYDROCODONE/APAP 7.5 MG/325 MG TABLET PO PRN ×3 (07:38→22:08)
[2017-12-16] MEDS: SENNOSIDES 8.6 MG TABLET PO SCH ×2 (08:19→22:08)
[2017-12-16] MEDS: CYANOCOBALAMIN (B-12) 500mcg TABLET PO SCH (08:19)
[2017-12-16] MEDS: SITAGLIPTIN 100 MG TABLET PO SCH (08:19)
[2017-12-16] MEDS: COENZYME Q-10 200mg TABLET PO SCH ×2 (08:20→22:07)
[2017-12-16] MEDS: BACLOFEN 10 MG TABLET PO SCH ×4 (08:20→22:08)
[2017-12-16] MEDS: ASPIRIN 325 MG TABLET PO SCH (08:20)
[2017-12-16] MEDS: LOSARTAN 50 MG TABLET PO SCH (08:20)
[2017-12-16] MEDS: CITALOPRAM 20 MG TABLET PO SCH (08:20)
[2017-12-16] MEDS: PRAVASTATIN 20 MG TABLET PO SCH (08:21)
[2017-12-16] MEDS: PREGABALIN 75 MG CAPSULE PO SCH (08:21)
[2017-12-16] MEDS: CALCIUM 500 + VIT D 200 TABLET PO SCH ×2 (08:21→22:11)
[2017-12-16] MEDS: MAGNESIUM OXIDE 400 MG TABLET PO SCH ×2 (08:21→22:08)
[2017-12-16] MEDS: MULTI-VITAMIN PLAIN TABLET PO SCH (08:21)
[2017-12-16] MEDS: LIDOCAINE 5% PATCH TOP SCH (08:22)
[2017-12-16] MEDS: TRIAMCINOLONE 0.1% CREAM 15 G TUBE TOP SCH ×2 (08:24→22:11)
[2017-12-16] MEDS: DOCUSATE SODIUM 100 MG CAPSULE PO SCH ×2 (08:26→22:08)
[2017-12-16] MEDS: ASCORBIC ACID 500 MG TABLET PO SCH (08:26)
[2017-12-16] MEDS: PANTOPRAZOLE 40 MG TABLET PO SCH (08:26)
--- NOTE | 2017-12-16 11:42 | IRU Progress Note ---
- Subjective/Serverity of Illness Date: 12/16/17 Kristy was reassess in her room on inpatient rehabilitation today. She is doing well with therapy. She is using about 6 pain pills daily. She is also using Lidoderm patch during the daytime, removing it at night for her neck pain. Neck incisions look great both anteriorly and posteriorly. Her blood sugars are reviewed and are stable. From a therapy standpoint she is transferring with standby assistance. She is able to ambulate with a front-wheeled walker with total assistance of 1 person 28 feet. Bathing is with modified independent level of functioning. Upper body dressing is independent and lower body dressing is with minimum assistance. Anticipate successful and safe transfer to her home environment tomorrow. Exam Vital Signs: Temperature 98.5 F 12/16/17 08:00 Pulse Rate 84 12/16/17 08:00 Respiratory Rate 18 12/16/17 08:26 Blood Pressure 128/66 12/16/17 08:00 Pulse Oximetry 96 12/16/17 08:00 Height/Weight/BMI: Height 1.57 m Weight 102.6 kg Body Mass Index 42.7 - Constitutional Present: no acute distress, well nourished, well developed, cooperative - Routine HEENT Exam Eye: Present: EOMI ENT: Present: mucous membranes moist, dentition normal - Routine Respiratory Exam Present: CTA bilaterally. Absent: wheezes - Routine Cardiovascular Exam Present: RRR, S1, S2. Absent: murmur - Routine Abdominal Exam Present: soft, normoactive bowel sounds, non distended. Absent: tenderness - Routine Extremities Exam Present: edema (trace), normal capillary refill Comments: Almost "clawhand" or flexion deformity of left hand fingers noted. Would benefit from splint. - Routine Skin Exam Present: dry, warm - Routine Neurological Exam Present: alert, oriented X3, CN II-XII intact - Routine Psychiatric Exam Present: normal affect IRU A/P (1) Cervical myelopathy Current visit: Yes Status: Chronic Her strength has improved. Her transfers are doing well with only standby assistance required at present. She has continued to improve with regard to therapy and it is anticipated the same transfer to home will be possible tomorrow. (2) DM type 2 (diabetes mellitus, type 2) Qualifiers: Diabetes mellitus fdc insulin use: without fdc use Diabetes mellitus complication status: without complication Qualified Code(s): E11.9 - Type 2 diabetes mellitus without complications Current visit: Yes Status: Chronic Her blood sugars appear to be coming down nicely with Bydureon and oral agents. (3) Hypertension Qualifiers: Hypertension type: essential hypertension Qualified Code(s): I10 - Essential (primary) hypertension Current visit: Yes Status: Chronic DVT Prophylaxis: SCD's Resuscitation Status: Full Code - Course Hospital Course: Ariel Mejia MD: 12/10/17 21:38 Patient is progressing with therapy. Blood sugars elevated. Constipated. 12/11/17 10:37 Blood sugars remain a bit elevated. Continues to struggle with constipation. She is doing well with therapy and making good progress. 12/12/17 10:47 Progressing with therapy. Had a bowel movement. 12/15/17 10:59 Blood sugars are improved. She is improving with therapy. Anticipate dismissal on Friday. 12/16/17 11:41 Blood sugars continued to do better. Improving with therapy. - Interventions to Obtain Goals PT Treatment Plan: Balance/Proprioception, Functional Activities, Gait Training , Patient/Family Education, Therapeutic Exercise OT Treatment Plan: ADL (Basic Care), Balance Training, IADL, Pt./Family Education, Ther. Exercise for ADL Goals Progress/Modifications: She has done well with therapy and anticipate a safe and successful transfer to her home environment tomorrow. Uncertain if we can get the splint and before she goes home however. Her blood sugars are improved.
[2017-12-16] MEDS: LIDOCAINE PATCH REMOVAL TOP SCH (22:12)
[2017-12-17 03:22] VITALS: RESP 18
[2017-12-17] MEDS: HYDROCODONE/APAP 7.5 MG/325 MG TABLET PO PRN ×2 (06:08→12:21)
[2017-12-17 08:07] VITALS: BP 124/65; PULSE 84; TEMP 99; O2SAT 94
[2017-12-17] MEDS: ASPIRIN 325 MG TABLET PO SCH (08:26)
[2017-12-17] MEDS: MAGNESIUM OXIDE 400 MG TABLET PO SCH (08:26)
[2017-12-17] MEDS: DOCUSATE SODIUM 100 MG CAPSULE PO SCH (08:27)
[2017-12-17] MEDS: LOSARTAN 50 MG TABLET PO SCH (08:27)
[2017-12-17] MEDS: PANTOPRAZOLE 40 MG TABLET PO SCH (08:27)
[2017-12-17] MEDS: SITAGLIPTIN 100 MG TABLET PO SCH (08:27)
[2017-12-17] MEDS: MULTI-VITAMIN PLAIN TABLET PO SCH (08:27)
[2017-12-17] MEDS: LIDOCAINE 5% PATCH TOP SCH (08:28)
[2017-12-17] MEDS: BACLOFEN 10 MG TABLET PO SCH ×2 (08:28→12:21)
[2017-12-17] MEDS: CYANOCOBALAMIN (B-12) 500mcg TABLET PO SCH (08:30)
[2017-12-17] MEDS: COENZYME Q-10 200mg TABLET PO SCH (08:30)
[2017-12-17] MEDS: CITALOPRAM 20 MG TABLET PO SCH (08:30)
[2017-12-17] MEDS: PRAVASTATIN 20 MG TABLET PO SCH (08:31)
[2017-12-17] MEDS: PREGABALIN 75 MG CAPSULE PO SCH (08:31)
[2017-12-17] MEDS: CALCIUM 500 + VIT D 200 TABLET PO SCH (08:31)
[2017-12-17] MEDS: ASCORBIC ACID 500 MG TABLET PO SCH (08:31)
[2017-12-17] MEDS: TRIAMCINOLONE 0.1% CREAM 15 G TUBE TOP SCH (08:32)
[2017-12-17] MEDS: SENNOSIDES 8.6 MG TABLET PO SCH (08:32)
[2017-12-17] MEDS: INSULIN ASPART 100unit/ml INJECTION SQ PRN ×2 (10:32→14:45)
--- NOTE | 2017-12-19 15:46 | Discharge Summary ---
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 Diabetes mellitus type 2 not on long-term insulin, no complications but not controlled 3. Benign essential hypertension - Laboratory Labs: 12/15/17 03:46 12/15/17 03:46 History of Present Illness HPI: Ms. Banuelos was initially admitted to Dr. Brandon Colon at [facility] on 12/02/2017 due to progressive weakness of the upper and lower extremities from a cervical myelopathy. She underwent an extensive anterior cervical discectomy and fusion involving C5-C7 as well as a posterior laminectomy bilaterally at C5-C7 with posterior lateral fusion at these levels. Patient had evidence of a cervical myelopathy with weakness in the upper and lower extremities and reduced hand corporate accounting manager. She also had diabetes mellitus on oral agents and Bydureon. The patient developed multiple functional deficits as a result of a of her cervical spine myelopathy and was felt to be a good candidate for inpatient rehabilitation where she was admitted at [facility] on 12/04/2017. Hospital Course This is a general summary of the patient's hospital course. For more details refer to the complete medical record. She was admitted to the acute inpatient rehabilitation unit for a multidisciplinary approach to her recovery. Her blood sugars were monitored carefully and initially worked a bit elevated. They subsequently came down. Her hemoglobin was normal at 12.5 and her creatinine was normal at 0.5. Her blood pressures were monitored and for the most part were adequately controlled in the 120s. The occasionally went up into the 150 range. She was followed by the hospitalist service as well as Dr. Mejia. The wounds in her neck both anteriorly and posturally were inspected and were unremarkable. The following levels of functional competence are to be considered preliminary information. The reader is encouraged to refer to actual therapy notes and reports for specific details. The patient was followed by physical therapy while on acute inpatient rehabilitation. At the conclusion of her stay, the following functional competencies were identified: Patient was able to transfer with standby assistance. She was able to ambulate 30-45 feet with total assistance of 1 person with a front-wheeled walker. The patient was followed by occupational therapy while on acute inpatient rehabilitation. At the conclusion of her stay, the following functional competencies were identified: She was able to bathe with standby assistance. Upper body dressing was independent and lower body dressing was with minimum assistance. The patient was dismissed to her home with home health assistance on 2017. I did give her a prescription for hydrocodone 7.5 mg #40 at the time of dismissal. She will follow-up with Dr. Colon as well as Dr. Martinez. Hospital course: 12/05/17 Agree with admission to IRU for pain control and further rehabilitation. Accu-Cheks. Continue home diabetes medications. If readings are consistently greater than 200 will start sliding scale insulin. Monitor blood pressures. Continue home losartan. Currently has Hale catheter. Once she is more mobile will discontinue. Pantoprazole for GERD and GI ppx. SCD's for DVT ppx. Care to return to Dr Martinez on dismissal. 12/10/17 Remove hale in am. Vitals and labs are stable. BS's running 170's-240 - currently on sitagliptin and Bydureon. On sliding scale. Attempted to contact Dr. Martinez to discuss opt of adding in metformin vs other agent. He is currently out of office until tomorrow afternoon. Will try again tomorrow to reach him. 12/14/17 Overall, doing well medically. Anticipate discharge home on 12/18. Continue therapies and treatment plan per Dr. Mejia. Continue to monitor blood sugars closely - variable. Encourage patient to follow up with Dr. Martinez as outpatient to discuss additional treatments for improved control. Recheck labs in AM to monitor blood counts, electrolytes and renal function. Time spent with patient: greater than 35 minutes Resuscitation Status: Full Code Discharge Plan - Med Rec/Dispo Referrals/Follow Up: Brandon Colon [Physician] - (Dr. Leticia Colon on 12/18/17 for follow-up. Appt scheduled from previous Hosp. stay.) Raymundo Martinez MD [Primary Care Provider] - (Dr. Maximiliano Martinez on 12/29/17 at 10:00 am for Hosp. follow-up. ) Prescriptions: New Aspirin [ASA] 325 mg PO DAILY tab Continue Pantoprazole Sodium [Protonix] 40 mg PO DAILY #0 Meloxicam 7.5 mg PO DAILY PRN PRN Reason: Pain Losartan Potassium 25 mg PO DAILY Acetaminophen [Acetaminophen Extra Strength] 500 mg PO Q4HR PRN PRN Reason: Pain LORazepam [Ativan] 0.5 mg PO Q4HR PRN PRN Reason: Anxiety Milk of Magnesia 30 ml PO DAILY PRN PRN Reason: Constipation /Stool Softening Metoclopramide [Reglan] 10 mg PO Q6HR PRN PRN Reason: Nausea Temazepam [Restoril] 15 mg PO HS PRN PRN Reason: insomina Sore Throat [place] [Chloraseptic [place]] 1 spray PO DAILY PRN PRN Reason: Pain Pravastatin [Pravachol] 1 tab PO DAILY PEG 3350 17gm PACKET [Miralax] 17 gm PO DAILY Triamcinolone 0.1% Cream 15 G [Kenalog] 1 applicatio TOP BID Calcium Citrate/Vitamin D3 [Calcium Citrate - Vit D Caplet] 1 each PO BID Magnesium Oxide [Magnesium] 400 mg PO BID Docusate Sodium [Colace] 1 cap PO BID Lidocaine 5% Patch [Lidoderm] 1 each TOP BID Hydrocodone/APAP 7.5/325 [Webster 7.5/325] 1 - 2 tab PO Q4HR PRN #40 tab PRN Reason: Pain alendronate 70 mg tablet 70 mg PO WEEKLY tab Celexa (citalopram) 20 mg tablet 20 mg PO DAILY tab ascorbic acid (vitamin C) 1,000 mg tablet 0.5 tab PO DAILY Januvia (sitagliptin) 100 mg tablet 100 mg PO DAILY cholecalciferol (vitamin D3) 1,000 unit tablet 1,000 unit PO DAILY tab coenzyme Q10 (ubiquinol) 200 mg capsule 200 mg PO Q12H Lyrica (pregabalin) 75 mg capsule 75 mg PO DAILY #30 cap exenatide ER 2 mg/0.65 mL subcutaneous pen injector 2 mg SQ Q7D baclofen 10 mg tablet 10 mg PO QID tab cyanocobalamin (vit B-12) 1,000 mcg/15 mL oral liquid 1,000 mcg PO DAILY ml multivitamin tablet 1 tab PO DAILY - Disposition [facility] Home Health Service - Dismissal Complete Discharge Instructions are:: Complete
== END 2017-12-17 15:00 | disposition home health service (06) | DRG 560 ==
PROVIDERS: ADMIT Internal Medicine; ATTEND Internal Medicine